=== PATIENT | male | born 1990 | race Caucasian/White ===

== ENCOUNTER 2025-03-02 22:11 | Observation (INO) | payer OTHER, SELFPAY ==
--- NOTE | ~2025-03-02 | CT_ITS ---
Non-contrast CT scan of the Abdomen and Pelvis Clinical indication: Right flank pain Technique: 2.5 mm axial scans were obtained through the abdomen and pelvis without intravenous or or al contrast. Dose reduction technique was used on this scan by utilizing automated exposure control a nd iterative reconstruction technique. The dose-length product (DLP) was 633.20 mGy-cm. Findings: Images through the lung bases reveal no abnormalities. There is no evidence of renal or ureteral calculi. The kidneys and the ureters are nondilated. The liver, spleen, pancreas, gallbladder, and adrenals appear normal. There is no aortic aneurysm. There is no evidence of bowel obstruction. Images through the pelvis were performed. There is no evidence of ascites or lymphadenopathy. Urinary bladder unremarkable. No pelvic mass seen. Impression: No significant abnormality seen. Reviewed, dictated and finalized at [facility]. Impression: No significant abnormality seen.
--- OUTSIDE RECORDS SUMMARY | 2025-03-02 22:14 | XMS_ITS | Continuity of Care Document ---
Author Organization [facility] Address [address] [place] [address] [place] [address] Phone Care Team Providers Care Water System Operator Name Role Phone Abdulaziz Ross MD Unavailable Unavailable Allergies, Adverse Reactions, Alerts Substance Reaction Status Criticality No Known Allergies Active No Inform ation Procedures Procedure Date PREV VISIT, EST, AGE 18-39 PREV VISIT, EST, AGE 18-39 OFFICE/OUTPATIENT VISIT, EST OFFICE/OUTPATIENT VISIT, EST OFFICE/OUTPATIENT VISIT, EST PREV VISIT, EST, AGE 18-39 OFFICE/OUTPATIENT VISIT, EST OFFICE/OUTPATIENT VISIT, EST OFFICE/OUTPATIENT VISIT, EST OFFICE/OUTPATIENT VISIT, EST PREV VISIT, NEW, AGE 18-39 Advance Directives Directive Yes / No Effective Date File Name No Information Encounters Encounter Description Practice Location Reason(s) For Visit Diagnoses Date Provider Providers Copied on Encounter PREV VISIT, EST, AGE 18-39 [facility], [address], [place], [place], [address], [place] tel:[phone] [facility] physical (chief complaint) Encounter for general adult medical examination without abnormal findings 4 Cody Cintron. [address], [place], [place], [address] , [place]. tel:[phone] Referring Provider: Abdulaziz Ross, [address], [place], [place], [address]. tel:[phone] PREV VISIT, EST, AGE 18-39 [facility], [address], [place], [place], [address], [place] tel:[phone] [facility] PHysical (chief complaint) Encntr for general adult medical exam w/o abnormal findings 7 Cody Cintron. [address], [place], [place], [address] , [place]. tel:[phone] Referring Provider: bAdulaziz Ross, [address], [place], [place], [address]. tel:[phone] OFFICE/OUTPA TIENT VISIT, EST [facility], [address], [place], [place], [address], [place] tel:[phone] [facility] DM (chief complaint)A DD (chief complaint) Attention deficitType 1 diabetes mellitus without complications 6 Cody Cintron. [address], [place], [place], [address] , [place]. tel:[phone] Referring Provider: Abdulaziz Ross, [address], [place], [place], [address]. tel:[phone] OFFICE/OUTPA TIENT VISIT, EST [facility], [address], [place], [address], [place] tel:[phone] [facility] ADD (chief complaint) Attention deficit 5 Cody Cintron. [address], [place], [place], [address] , [place]. tel:[phone] Referring Provider: Abdulaziz Ross, [address], [place], [place], [address]. tel:[phone] OFFICE/OUTPA TIENT VISIT, EST [facility], [address], [place], [place], [address], [place] tel:[phone] [facility] ear pain1 (chief complaint)a gitation1 (chief complaint)D M (chief complaint)v itamin d (chief complaint) Type 1 diabetes mellitus without complicationsVitam in D deficiency, unspecifiedOtalgia , left earAttention deficit 5 Cody Cintron. [address], [place], [place], [address] , [place]. tel:[phone] Referring Provider: Abdulaziz Rsos, [address], [place], [place], [address]. tel:[phone] PREV VISIT, EST, AGE 18-39 [facility], [address], [place], [place], [address], [place] [phone] [facility] DM (chief complaint)d epression (chief complaint)P hysical (chief complaint) Routine Medical ExamRoutine Medical Exam 5 Cody Cintron. [address], [place], [place], [address] , [place]. tel:[phone] Referring Provider: [address], [place], [place], [address]. tel:[phone] OFFICE/OUTPA TIENT VISIT, EST [facility], [address], [place], [address], [place] tel:[phone] [facility] DM (chief complaint)d epression (chief complaint) Diabetes Mellitus, Juvenile, ControlledUnspecif ied vitamin d deficiencyDepressi on 4 Cody Cintron. [address], [place], [place], [address] , [place]. [phone] Referring Provider: [address], [place], [place], [address]. tel:[phone] OFFICE/OUTPA TIENT VISIT, EST [facility], [address], [place], [place], [address], [place] tel:[phone] [facility] DM (chief complaint) Diabetes Mellitus Type 2, Uncomplicated 4 Cody Cintron. [address], [place], [place], [address] , [place]. tel:[phone] Referring Provider: [address], [place], [place], [address]. tel:[phone] OFFICE/OUTPA TIENT VISIT, [facility], [address], [place], [place], [address], [place] tel:[phone] [facility] depression (chief complaint) Dietary surveillance and counselingMajor depressive affective disorder, single episode, mild degree Jun-0 3 Cody Cintron. [address], [place], [place], [address] , [place]. tel:[phone] Referring Provider: [address], [place], [place], [address]. tel:[phone] OFFICE/OUTPA TIENT VISIT, [facility], [address], [place], [place], [address], [place] tel:[phone] [facility] depression (chief complaint) Dietary surveillance and counselingMajor depressive affective disorder, single episode, mild degree 3 Cody Cintron. [address], [place], [place], [address] , [place]. tel:[phone] Referring Provider: [address], [place], [place], [address]. tel:[phone] PREV VISIT, NEW, AGE 18-39 [facility], [address], [place], [address], [place] tel:[phone] [facility] Physical (chief complaint) Dietary surveillance and counselingRoutine Medical ExamRoutine Medical Exam 3 Cody Cintron. [address], [place], [place], [address] , [place]. tel:[phone] Referring Provider: [address], [place], [place], [address]. tel:[phone] Family History Family Member Type Diagnosis Age At Onset Mother Problem (finding) Alive and well Father Problem (finding) Alive and well Sister Problem (finding) Alive and well Payers Payer name Insurance type Covered libertarian ID Authoriza tion(s) No Information Social History Type Description Quantity Date Captured Comments Alcohol Use Details No Caffeine Use Details Unknown Tobacco Use Status Never smoked tobacco 2023 Smoking Status Never smoker Sex Male Vital Signs Date / Time: Height Weight BMI Pulse Rate Blood Pressure Temperature Respiratory Rate Body Surface Area Head Circumference BMI percentile Pulse Ox Inhaled Ox 2:26 PM 74.00 in 216.60 lbs 27.8 1 kg/m eter (2) 71 /min 120/78 mm[Hg] 97.2 F 16 /min Chief Complaint And Reason For Visit From encounter dated 10/06/2024 14:25'. physical (chief complaint). Description: Pt needs annual physical Pt has type I DM Pt sees josiah andhe is on insulin pump and his recent A1c was 7.1 per mom Pt is doing ok with insulin pump. Pt denies any polyuria, polydipsia Pt denies any neuropathy .Pt also has history of low thyroid and he has been seeing endo and his thyroid has been ok Pt denies any dysphagia or neck pain. Pt denies any other complaints Plan Of Treatment Date Type Action Status Goal Influenza vaccine. Due on due Goal Td vaccine. Due on 24 due Goal Tdap. Due on due Goal Depression screening. Due on due Goal Tdap. Due on due Goal Td vaccine. Due on 17 due Goal Depression screening. Due on due Goal Tdap. Due on due Goal Td vaccine. Due on 16 due Goal Depression screening. Due on due Goal Td vaccine. Due on 15 due Goal Depression screening. Due on due Goal Tdap. Due on due Goal Depression screening. Due on due Goal Td vaccine. Due on 15 due Goal Tdap. Due on due Referral Ordered: Referral: Ophthalmology. Evaluate and treat. ordered Referral Ordered: Referral: Endocrinology. ordered History Of Present Illness Encounter Date Complaint History Of Harry nt Illness physical Pt needs annual physical Pt has type I DM Pt sees endo and he is on insulin pump and his recent A1c was 7.1 per mom Pt is doing ok with insulin pump. Pt denies any polyuria, polydipsia Pt denies any neuropathy .Pt also has history of low thyroid and he has been seeing endo and his thyroid has been ok Pt denies any dysphagia or neck pain. Pt denies any other complaints PHysical PT needs annual physical. Pt has history of austic disorder and he denies any depression or anxiety Pt used to take ritalin but he has not taken it for a while. Pt states that he feels difficulty with focus without ritalin Pt also has DM. [facility] and he has not seen any endo for 3 months. Pt denies any numbness. Pt states that his BG is around 150s. Pt has not been eating very healthy. Pt takes lantus 15 units and also apidra before meals Pt denies any other ocmplaints ADD Pt has ADD. Pt t akes ritalin 10 mg and doing ok. Pt denies any abd pain or any appetite loss. Pt states that he is in better mood. Pt denies any depression or any suicidal thought DM PT has type I DM . Pt is seeing endo and he is on lanuts and apidra. Pt states that his BG is arond 150s. His A1c is around 8.0 ADD Pt has ADd. Pt h as chronic poor focus, easily distracted, difficlulty with multitasking. Pt feels overwhelmed all the time. Pt is austic and he denies any depression or any suicidal thought Pt denies any crying spells. Pt states that ritalin is helping his above symptoms. Pt feels less irritable. Pt feels about 50% better in terms of his mood. Pt denies any abd pain or any appetite loss vitamin d Pt has low vitam in D. DM Pt has type I Dm . Pt is seeing endo. Pt takes lantus and apidra. His A1c is 6.3. Pt denies any polyuuria, polydipsia. agitation1 Pt is austic. Pt has history of depression and agitation. Pt states that he has anger outbust frequently, especially when he is doing multitasking. Pt also has history of poor focus and poor concentration. pt states that he has difficulty getting anyting done due to distration. Pt denies any crying speels Pt denies any depression or anxiety. Pt denies any suicidal or homicidal thought ear pain1 Pt c/o acute lef t ear pain since last Friday. Pt denies any hearing loss Pt denies any sore throat. Pt denies any headache. Pt has sinus congestion also Pt denies any fever or recent travel Instructions Date Instruction Additional Infor vineet Decrease caloric intake Related to Dietary surveillance counseling Dietary counseling Related to Di etary surveillance counseling Decrease caloric intake Related to Dietary surveillance counseling Dietary counseling Related to Di etary surveillance counseling Dietary counseling Related to Di etary surveillance counseling Decrease caloric intake Related to Dietary surveillance counseling Assessments Type Assessment Date assessment Encounter for rigo l adult medical examination without abnormal findings Mental Status Date Cognitive Assessment Orientation - [place] ed to time, place, person, situation.
--- OUTSIDE RECORDS SUMMARY | 2025-03-02 22:14 | XMS_ITS | Encounter Summary ---
Author Organization [facility] Address [address] [facility] [place] [address] Care Team Providers Care Oxygen Therapist Name Role Phone Abdulaziz Ross MD Primary Care Provider [phone] Encounter Details Date Type Department Care Team (Late st Contact Info) Description 10/04/2024 Telephone [facility] - Endocrinology [facility] [address] Santino Garsia MD [address] [place] [address] Social History Tobacco Use Types Packs/Day Years Used Date Smoking Tobacco: Never Smokeless Tobacco: Never Alcohol Use Standard Drinks/Week Comments Yes 3 (1 standard drink = 0.6 oz pur e alcohol) Sex and Gender Information Value Date Recorded Sex Assigned at Not on file Gender Identity Not on file Sexual Orientation Not on file documented as of this encounter Miscellaneous Notes * Telephone Encounter - Zakia Donahue - 10/04/2024 1:03 PM CST Current Provider: Dr. Santino Garsia Reason for Call: Carl Caba's mothere would like to schedule an appt w/ Dr. Garsia. Please call Her at [phone] Janna Mendenhall. Patient Call Back Number: [phone] WICH MAKER documented in this encounter Plan of Treatment Upcoming Encounters Date Type Department Care Team (Late st Contact Info) Description 05/17/2025 10:00 AM CDT Office Visit [facility] - Endocrinology [address] [facility] [place] [address] Santino Garsia MD [address] [place] [address] documented as of this encounter Visit Diagnoses Not on filedocumented in this encounter Care Teams Oxygen Therapist Relationship Specialty Start Date End Date Abdulaziz Ross MD [address] [facility] [address] [place] [address] PCP - General 11/09/14 documented as of this encounter
--- OUTSIDE RECORDS SUMMARY | 2025-03-02 22:14 | XMS_ITS | Encounter Summary ---
Author Organization [facility] Address [address] [place] [address] Care Team Providers Care Consultant Intern Name Role Phone Unavailable Primary Care Provider Unavailabl e Encounter Details Date Type Department Care Team (Late st Contact Info) Description 03/01/2025 External Device Data [place] ABSTRACTION Provider, Abstract NO ADDRESS ON FILE Social History Tobacco Use Types Packs/Day Years Used Date Smoking Tobacco: Never Assessed Sex and Gender Information Value Date Recorded Sex Assigned at Not on file Legal Sex Male 12:32 PM CDT Gender Identity Not on file Sexual Orientation Not on file documented as of this encounter Plan of Treatment Not on file documented as of this encounter Visit Diagnoses Not on filedocumented in this encounter
--- OUTSIDE RECORDS SUMMARY | 2025-03-02 22:14 | XMS_ITS | Encounter Summary ---
Author Organization [facility] Address [facility] [facility] [place] [address] Care Team Providers Care Image Archivist Name Role Phone Abdulaziz Ross MD Primary Care Provider [phone] Encounter Details Date Type Department Care Team (Late Contact Info) Description 02/20/2025 Orders Only [facility] - Pulmonology [address] [place] [phone] Anita Finn MD [address] [place] [address] Type 1 diabetes mellitus without complications Social History Tobacco Use Types Packs/Day Years Used Date Smoking Tobacco: Never Smokeless Tobacco: Never Alcohol Use Standard Drinks/Week Comments Yes 3 (1 standard drink = 0.6 oz pur e alcohol) Sex and Gender Information Value Date Recorded Sex Assigned at Not on file Gender Identity Not on file Sexual Orientation Not on file documented as of this encounter Plan of Treatment Upcoming Encounters Date Type Department Care Team (Late Contact Info) Description 05/17/2025 10:00 AM CDT Office Visit [facility] - Endocrinology [address] [place] [phone] Santino Garsia MD [address] [place] [phone] documented as of this encounter Visit Diagnoses Diagnosis Type 1 diabetes mellitus without complications (HCC) Type I (juvenile type) diabetes mellitus without mention of complication, not stated as uncontrolled documented in this encounter Care Teams Image Archivist Relationship Specialty Start Date End Date Abdulaziz Ross MD [address] [facility] [address] [place] [address] PCP - General 11/09/14 documented as of this encounter
--- OUTSIDE RECORDS SUMMARY | 2025-03-02 22:14 | XMS_ITS | Encounter Summary ---
Author Organization [facility] Address [address] [facility] [address] Care Team Providers Care Lining Maker Hand Name Role Phone Abdulaziz Ross MD Primary Care Provider [phone] Encounter Details Date Type Department Care Team (Late st Contact Info) Description 02/09/2025 Telephone [facility] - Endocrinology [address] [facility] [facility] [place] [phone] Anita Finn MD [address] [place] [address] Social History Tobacco Use Types Packs/Day Years [...] * Telephone Encounter - Zakia Donahue - 02/09/2025 3:29 PM CDT Current Provider: Reason for Call: [facility] in [facility] called re: Carl Caba's insulin lispro (HumaLOG) 100 UNIT/ML vial refill. It is just written today under Dr. Jack Mckeon and he is not in their DataBase for Medicaid. Could this script be written under previous prescriber Anita Andrews. Please give the [facility] call at [phone] Patient Call Back Number: [phone] documented in this encounter Plan of Treatment Upcoming Encounters Date Type Department Care Team (Late st Contact Info) Description 05/17/2025 10:00 AM CDT Office Visit [facility] - Endocrinology [address] [facility] [place] [address] Santino Garsia MD [address] [place] [address] documented as of this encounter Visit Diagnoses Not on filedocumented in this encounter Care Teams Lining Maker Hand Relationship Specialty Start Date End Date Abdulaziz Ross MD [address] [facility] [address] [facility] 20 [place] [address] PCP - General 11/09/14 documented as of this encounter
--- OUTSIDE RECORDS SUMMARY | 2025-03-02 22:14 | XMS_ITS | Encounter Summary ---
Author Organization [facility] Address [facility] [facility] [place] [address] Care Team Providers Care Chief Client Officer Name Role Phone Abdulaziz Ross MD Primary Care Provider [phone] Reason for Visit * Reason Onset Date Comments MEDICATION REFILL 06/24/2022 Encounter Details Date Type Department Care Team (Late Contact Info) Description 06/24/2022 Refill [facility] Endocrinology, Diabetes and Metabolism [address] [place] [phone] Agapito Hicks MD [address] [place] [address] OF ENDOCRINOLOGY [place], [place] [phone] MEDICATION REFILL Social History Tobacco Use Types Packs/Day Years [...] Office Visit [facility] - Endocrinology [address] [place] [phone] Santino Garsia MD [address] [facility] [address] [place] [phone] documented as of this encounter Visit Diagnoses Diagnosis Type 1 diabetes mellitus without complications (HCC) Type I (juvenile type) diabetes mellitus without mention of complication, not stated as uncontrolled documented in this encounter Care Teams Chief Client Officer Relationship Specialty Start Date End Date Abdulaziz Ross MD [address] [facility] [address] [place] [phone] PCP - General 11/09/14 documented as of this encounter
--- OUTSIDE RECORDS SUMMARY | 2025-03-02 22:14 | XMS_ITS | Encounter Summary ---
Author Organization [facility] Address [facility] [place] [address] Care Team Providers Care Service Restorer Emergency Name Role Phone Abdulaziz Ross MD Primary Care Provider [phone] Reason for Visit * Reason Onset Date Comments MEDICATION REFILL 09/17/2019 Encounter Details Date Type Department Care Team (Late st Contact Info) Description 09/17/2019 Refill [facility] Endocrinology, Diabetes and Metabolism [address] [place] [address] Robbi Crockett MD [address] [place] [address] MEDICATION REFILL Social History Tobacco Use Types Packs/Day Years Used Date Smoking Tobacco: Never Smokeless Tobacco: Never Alcohol Use Standard Drinks/Week Comments No 0 (1 standard drink = 0.6 oz pur e alcohol) Sex and Gender Information Value Date Recorded Sex Assigned at Not on file Gender Identity Not on file Sexual Orientation Not on file documented as of this encounter Miscellaneous Notes * Telephone Encounter - James Lemons - 09/17/2019 1:41 PM CDT Refill Request Carl Caba GAMAL:08/12/19 NOV: 01/06/20 Allergies: No Known Allergies Pended Medication Order: Requested Prescriptions Pending Prescriptions Disp Refills ??? Insulin Pen Needle 32G X 4 MM MISC 100 Each 3 Si Each by Injection route once daily With basaglar documented in this encounter Plan of Treatment Upcoming Encounters Date Type Department Care Team (Late st Contact Info) Description 05/17/2025 10:00 AM CDT Office Visit [facility] - Endocrinology [address] [facility] [place] [address] Santino Garsia MD [address] [facility] [address] [place] [address] documented as of this encounter Visit Diagnoses Not on filedocumented in this encounter Care Teams Service Restorer Emergency Relationship Specialty Start Date End Date Abdulaziz Ross MD [address] [facility] [address] [place] [address] PCP - General 11/09/14 documented as of this encounter
--- OUTSIDE RECORDS SUMMARY | 2025-03-02 22:14 | XMS_ITS | Encounter Summary ---
Author Organization [facility] Address [facility] [facility] [place] [address] Care Team Providers Care Talent Associate Name Role Phone Abdulaziz Ross MD Primary Care Provider [phone] Reason for Visit * Reason Onset Date Comments MEDICATION REFILL 07/03/2020 Encounter Details Date Type Department Care Team (Late Contact Info) Description 07/03/2020 Refill [facility] End[facility]inology, Diabetes and Metabolism [address] [place] [address] Robbi Crockett MD [facility] [place] [address] MEDICATION REFILL Social History Tobacco Use Types [...] Office Visit [facility] - Endocrinology [address] [facility] [place] [phone] Santino Garsia MD [address] [place] [phone] documented as of this encounter Visit Diagnoses Not on filedocumented in this encounter Care Teams Talent Associate Relationship Specialty Start Date End Date Abdulaziz Ross MD [address] [facility] [address] [facility] 20 [place] [address] PCP - General 11/09/14 documented as of this encounter
--- OUTSIDE RECORDS SUMMARY | 2025-03-02 22:14 | XMS_ITS | Clinical Summary ---
Author Organization [facility] Address [address] [place] [address] Care Team Providers Care Crop And Soil Scientist Name Role Phone Abdulaziz Ross MD Primary Care Provider [phone] [facility],non-owned Affiliates and Associated Physician Practices is amultiple site organization consisting of ambulatory clinics and hospital sitesin [place], [place], [place] and [place]. This disclosure is being madepursuant to the Care Everywhere program and may not contain all information available regarding this patient. Last updated 08/14/18.71lbs [facility] Allergies No known active allergies Medications * Be aware that medications may not be up to date on this document. Alwaysverify current medications with the patient. Medication Sig Dispensed Refills Start Date End Date Status insulin syringe-needle (BD ULTRAFINE II) 31G X 5/16 1 ML syringe 1 Syringe by Does not apply route 4 times daily. 200 Each 11 09/01/2019 Active GNP ALCOHOL SWABS 70 %Indications:Type 1 diabetes mellitus without complications (HCC) Apply 1 Each to affected area as directed TYPE 1 DM, E10.65 IDDM 200 Each 11 03/09/2020 Active Blood Glucose Monitoring Suppl (ONE TOUCH ULTRA 2) w/Device KITIndications:Typ e 1 diabetes mellitus without complications (HCC) Use 1 kit as directed TYPE 1 DM, E10.65 IDDM 1 kit 03/15/2020 Active Additional Information Patient not taking.Reported on 11/25/2023 glucagon (GLUCAGON EMERGENCY) injection Inject 1 mg subcutaneously as needed 1 kit 11 05/02/2020 Active Insulin Pen Needle 32G X 4 MM MISC 1 Each by Injection route 6 times daily while awake With basaglar 200 Each 11 05/02/2020 Active Continuous Blood Gluc Financial Retirement Plan Specialist (DEXCOM G6 PHARMACIST HELPER) HARVINDER USE UTD 05/19/2020 Active Continuous Glucose Transmitter (Dexcom G6 Transmitter) MISCIndications:Ty pe 1 diabetes mellitus without complications (HCC) Use 1 Each Every 90 days 1 Each 3 04/12/2024 Active Continuous Glucose Sensor (Dexcom G6 Sensor) MISCIndications:Ty pe 1 diabetes mellitus without complications (HCC) Change every 10 days as directed 9 Each 2 11/19/2024 Active insulin lispro (HumaLOG) 100 UNIT/ML vialIndications:Ty pe 1 diabetes mellitus without complications (HCC) ICR 8, ISF 30, max dose 100 units for use in insulin pump 100 mL 11 02/20/2025 Active insulin lispro (HumaLOG) 100 UNIT/ML vialIndications:Ty pe 1 diabetes mellitus without complications (HCC) ICR 8, ISF 30, max dose 80 units for use in insulin pump 80 mL 11 10/26/2024 5 Discontinu ed(Reorder ) insulin lispro (HumaLOG) 100 UNIT/ML vialIndications:Ty pe 1 diabetes mellitus without complications (HCC) ICR 8, ISF 30, max dose 100 units for use in insulin pump 100 mL 11 02/09/2025 5 Discontinu ed(Reorder ) Active Problems Problem Noted Date Diagnosed Date Insulin pump in place 08/08/2020 Vitamin D deficiency 01/24/2016 Autistic disorder 12/21/2014 Type 1 diabetes mellitus without complications 0 12/21/2014 Encounters Date Type Department Care Team Description 02/20/2025 Orders Only [facility] - Pulmonology [address] [place] [address] [phone] Anita Finn MD Type 1 diabetes mellitus without complications 02/09/2025 Telephone [facility] - Endocrinology [address] [place] [address] [phone] Anita Finn MD 01/25/2025 11:[address] Office Visit [facility] - Endocrinology [address] [place] [address] [phone] Santino Garsia MD Type 1 diabetes mellitus without complications (Primary Dx) 01/25/2025 Travel from Last 3 Months Family History Medical History Relation Name Comments None Known Brother None Known Father Thyroid Disease Maternal Aunt None Known Maternal Grandfather None Known Maternal Grandmother Diabetes Maternal Uncle None Known Mother None Known Other None Known Paternal Grandfather None Known Paternal Grandmother None Known Sister Alcohol abuse Neg Hx Asthma Neg Hx Dementia Neg Hx Depression Neg Hx Drug Abuse Neg Hx Glaucoma Neg Hx Gout Neg Hx Leukemia Neg Hx Migraine Neg Hx Multiple Sclerosis Neg Hx Other Neg Hx Relation Name Status Comments Brother Father Alive Maternal Aunt Maternal Grandfather Maternal Grandmother Maternal Uncle Mother Alive Other Paternal Grandfather Paternal Grandmother Sister Social History Tobacco Use Types Packs/Day Years Used Date Smoking Tobacco: Never Smokeless Tobacco: Never Tobacco Cessation:Counseling Given: Not Answered Alcohol Use Standard Drinks/Week Comments Yes 3 (1 standard drink = 0.6 oz pur e alcohol) Sex and Gender Information Value Date Recorded Sex Assigned at Not on file Gender Identity Not on file Sexual Orientation Not on file Last Filed Vital Signs Vital Sign Reading Time Taken Comments Blood Pressure 111/79 01/25/2025 10:[address] Pulse 81 01/25/2025 10:[address] Temperature 36.6 C (97.8 F) 06/01/2024 10:26 AM CDT Respiratory Rate 18 11/25/2023 10:[address]DU[address] Oxygen Saturation 95% 01/25/2025 10:[address] Inhaled Oxygen Concentration - - Weight 98.7 kg (217 lb 9.6 oz) 01/25/2025 10:[address] Height 188 cm (6' 2 ) 01/25/2025 10:[address]DU[address] Body Mass Index 27.94 01/25/2025 10:[address]DU[address] Plan of Treatment Upcoming Encounters Date Type Department Care Team (Late st Contact Info) Description 05/17/2025 10:00 AM CDT Office Visit [facility] - Endocrinology [address] [facility] [place] [phone] Santino Garsia MD [address] [place] [phone] Health Maintenance Due Date Last Done Comments HIV SCREENING 2003 HEPATITIS C SCREENING 08/27/2006 DTAP/TDAP/TD VACCINES (1 - Tdap) 2007 HEPATITIS B VACCINE (1 of 3 - 19+ 3-dose series) 2007 PNEUMOCOCCAL VACCINE (1 of 2 - PCV) 2007 DIABETES RETINOPATHY SCREENING 02/23/2018 COVID-19 VACCINE (1 - season) 2024 DEPRESSION SCREENING 11/24/2024 DIABETES - URINE PROTEIN SCREENING 11/24/2024 06/30/2024, 06/11/2022, 05/10/2021, Additional history exists DIABETES-SERUM CREATININE 04/01/20252023, 05/09/2021, 06/12/2020, Additional history exists DIABETES-HGB A1C 04/27/2025 01/25/2025, 01/2024, 06/01/2024, Additional history exists DIABETES-FOOT EXAM WITH MONOFILAMENT 06/01/2025 06/01/2024, 08/12/2019, 04/23/2018, Additional history exists INFLUENZA VACCINE (Season Ended) 2025 ZOSTER VACCINE (1 of 2) 2038 HIB VACCINE Aged Out No longer eligi ble based on patient's age to complete this topic HPV VACCINE Aged Out No longer eligi ble based on patient's age to complete this topic MENINGOCOCCAL (Group B) VACCINE SHARED DECISION-MAKING Aged Out No longer eligible based on patient's age to complete this topic MENINGOCOCCAL GROUPS A/C/Y/W VACCINE Aged Out No longer eligible based on patient's age to complete this topic Procedures Procedure Name Priority Date/Time Associated Diagnosis Comments HEMOGLOBIN A1C - POINT OF CARE (AMB) [facility] Routine 01/25/2025 11:[address] Type 1 diabetes mellitus without complications MICROALB/CREAT RATIO URINE RANDOM PANEL 06/30/2024 1:13 PM CDT COMPREHENSIVE METABOLIC PANEL 04/01/2024 9:34 AM CDT from Last 3 Months or Most Recently Relevant to Health Maintenance Results * HEMOGLOBIN A1C - POINT OF CARE (AMB) [facility] (01/25/2025 11:[address]DUCTOR) Hemoglobin A1c POCT 8.0 % [address] BLOOD SPECIMEN / Unknown 01/25/2025 11:[address]DU[address] Santino Garsia MD LAB - POINT OF CARE ORDERABLES Performing Organization Address [facility] Co de Phone Number [place] [phone] [facility] [place] [address], [facility] [phone] * MICROALB/CREAT RATIO URINE RANDOM PANEL (06/30/2024 1:13 PM CDT) Creatinine Urine 77 20 - 320 mg/dL [facility] Microalbumin Urine 0.3 mg/dL [facility] Comment: Reference Range Not established Microalbumin/Creat inine Ratio 4 <30 mg/g creat [facility] Comment: The ADA defines abnormalities in albumin excretion as follows: Albuminuria Category Result (mg/g creatinine) Normal to Mildly increased <30 Moderately increased 30-299 Severely increased > OR = 300 The ADA recommends that at least two of three specimens collected within a 3-6 month period be abnormal before considering a patient to be within a diagnostic category. Test Performed at: [facility] [address] FELICITAS MUNOZ MD 06/30/2024 1:13 PM CDT 06/30/2024 1:16 PM CDT Santino Garsia MD LAB - URINE CHEMISTR Y ORDERABLES Performing Organization Address City/[facility]/ZIP Co de Phone Number [facility] [address] [place] [address] * (ABNORMAL) COMPREHENSIVE METABOLIC PANEL (04/01/2024 9:34 AM CDT) Glucose 233(H) 65 - 139 mg/dL [facility] Comment: Non-fasting reference interval BUN 19 7 - 25 mg/dL [facility] Creatinine 0.93 0.60 - 1.26 mg/dL [facility] eGFR by Cystatin C 110 > OR = 60 mL/min/1. 73m2 [facility] BUN/Creatinine Ratio SEE NOTE: 6 - (calc) [facility] Comment: Not Reported: BUN and Creatinine are within reference range. Sodium 138 135 - 146 mmol/L [facility] Potassium 4.4 3.5 - 5.3 mmol/L [facility] Chloride 103 98 - 110 mmol/L [facility] CO2 27 20 - 32 mmol/L [facility] Calcium 9.0 8.6 - 10.3 mg/dL [facility] Protein Total 6.3 6.1 - 8.1 g/dL [facility] Albumin 4.1 3.6 - 5.1 g/dL [facility] Globulin Total 2.2 1.9 - 3.7 g/dL (calc) [facility] Albumin/Globulin Ratio 1.9 1.0 - 2.5 (calc) [facility] Bilirubin Total 0.8 0.2 - 1.2 mg/dL [facility] Alkaline Phosphatase 100 36 - 130 U/L [facility] AST 15 10 - 40 U/L [facility] ALT 13 9 - 46 U/L [facility] Comment: REPORT COMMENT: FASTING:NO Test Performed at: [facility] [address] FELICITAS MUNOZ MD 04/01/2024 9:34 AM CDT 04/01/2024 9:35 AM CDT Santino Garsia MD LAB - CHEMISTRY ALANA [facility]OR[facility] Organization Address City/State/ZIP Co de Phone Number [address] [address] from Last 3 Months or Most Recently Relevant to Health Maintenance Care Teams Crop And Soil Scientist Relationship Specialty Start Date End Date Abdulaziz Ross MD [address] [facility] [address] [place] [address] PCP - General 11/09/14
--- OUTSIDE RECORDS SUMMARY | 2025-03-02 22:14 | XMS_ITS | Clinical Summary ---
Author Organization [facility] Address [address] [place] [address] Care Team Providers Care Cooking Teacher Name Role Phone Unavailable Primary Care Provider Unavailabl e Medications Blood-Glucose Transmitter (Dexcom G6 Transmitter) Device Use 1 every 90 days 1 Each 3 12/26/2024 1:17 PM TRAIN ELECTRONIC TECHNICIAN 4 Active insulin lispro (HumaLOG,ADMELOG ) 100 unit/mL vial Use as directed with insulin pump. Max dose of 80 units. ICR 8 and ISF 30. 80 mL 11 02/10/2025 4:39 PM CDT 4 Active Blood-Glucose Sensor (Dexcom G6 Sensor) Device Change every 10 days as directed 9 Each 2 02/01/2025 11:33 AM CDT 4 Active insulin lispro (HumaLOG,ADMELOG ) 100 unit/mL vial ICR 8, ISF 30, max dose 100 units for use in insulin pump 100 mL 11 5 Active insulin lispro (HumaLOG,ADMELOG ) 100 unit/mL vial ICR 8, ISF 30, Max dose 100 units for use in insulin pump 100 mL 11 5 02/21/20 25 Discontinu ed(Other) Encounters Date Type Department Care Team Description 03/01/2025 External Device Data [facility] ABSTRACTION Provider, Abstract 01/29/2025 External Device Data [facility] ABSTRACTION Provider, Abstract 01/28/2025 External Device Data [facility] AB[facility]CTION Provider, Abstract 01/26/2025 External Device Data [facility] AB[facility]CTION Provider, Abstract from Last 3 Months Social History Tobacco Use Types Packs/Day Years Used Date Smoking Tobacco: Never Assessed Sex and Gender Information Value Date Recorded Sex Assigned at Not on file Legal Sex Male 12:32 PM CDT Gender Identity Not on file Sexual Orientation Not on file Plan of Treatment Health Maintenance Due Date Last Done Comments DTAP/TDAP/TD VACCINES (1 - Tdap) 2007 HEPATITIS B VACCINES (1 of 3 - 19+ 3-dose series) 2007 INFLUENZA VACCINE (#1) 2024 HPV VACCINES Aged Out No longer eligi ble based on patient's age to complete this topic Insurance [employer] Commercial
[2025-03-02 22:21] VITALS: BP 122/88; PULSE 116; RESP 20; TEMP 36.5; O2SAT 98
[2025-03-02 22:29] LABS: Glucose Point of Care 468 mg/dl (65-105)
[2025-03-03] VITALS (11 sets, daily range): BP systolic 91–120; BP diastolic 55–79; PULSE 93–115; RESP 14–21; TEMP 36.6–37.2; O2SAT 94–98; BMI 27.8
[2025-03-03 01:24] LABS: Basophils Absolute Auto 0.1 K/mm3 (0.0-0.1); Basophils Percent Auto 0.3 % (0.2-1.2); Hematocrit 46.2 % (42.0-52.0); Hemoglobin 15.3 g/dL (14.0-18.0); Immature Granulocyte Absolute 0.17 K/mm3 (0.00-0.031); Immature Granulocyte Percent A 0.7 % (0-0.5); Lymphocytes Absolute Auto 1.78 K/mm3 (0.9-3.2); Lymphocytes Percent Auto 7.5 % (18.3-44.2); Mean Corpuscular HGB Conc 33.1 g/dl (32-36); Mean Corpuscular Hemoglobin 29.5 pg (26-34); Mean Platelet Volume 9.8 fl (7.4-10.4); Monocytes Absolute Auto 1.6 K/mm3 (0.1-0.6); Monocytes Percent Auto 6.6 % (2.6-8.5); Neutrophils Absolute Auto 20.1 K/mm3 (1.3-6.7); Neutrophils Percent Auto 84.9 % (45.5-73.1); Platelet Count Result 288 k/mm3 (150-375); Red Blood Count 5.19 M/mm3 (4.6-6.20); Red Cell Distribution Width 12.8 % (11.5-14.5); White Blood Count 23.7 K/mm3 (4.5-10.0)
[2025-03-03 01:25] LABS: Glucose Point of Care 323 mg/dl (65-105)
[2025-03-03] MEDS: ONDANSETRON INJ 4 MG/2 ML VIAL (01:26)
[2025-03-03] MEDS: MORPHINE SULFATE (*CRX) 4 MG/ML INJ IV PUSH (01:33)
[2025-03-03] MEDS: SODIUM CHLORIDE 0.9% 999 ML IV CONT (01:33)
--- OUTSIDE RECORDS SUMMARY | 2025-03-03 01:35 | XMS_ITS | Continuity of Care Document ---
Author Organization [facility] Address [address] [place] [address] [place] [address] Phone Care Team Providers Care Ring Maker Name Role Phone Abdulaziz Ross MD Unavailable [...] on Encounter PREV VISIT, EST, AGE 18-39 [facility], [address], [place], [place], [address], [place] tel:[phone] [facility] physical (chief complaint) Encounter for general adult medical examination without abnormal findings 4 Cody Cintron. [address], [place], [place], [address] , [place]. tel:[phone] Referring Provider: Abdulaziz Ross, [address], [place], [place], [address]. tel:[phone] PREV VISIT, EST, AGE 18-39 [facility] [place], [address], [place], [place], [address], [place] tel:[phone] [facility] [place] PHysical (chief complaint) Encntr for general adult medical exam w/o abnormal findings 7 Cody Cintron. [address], [place], [place], [address] , [place]. tel:[phone] Referring Provider: Abdulaziz Ross, [address], [place], [place], [address]. tel:[phone] OFFICE/OUTPA TIENT VISIT, EST [facility] [place], [address], [place], [place], [address], [place] tel:[phone] [facility] [place] DM (chief complaint)A DD (chief complaint) Attention deficitType 1 diabetes mellitus without complications 6 Cody Cintron. [address], [place], [place], [address] , [place]. tel:[phone] Referring Provider: Abdulaziz Ross, [address], [place], [place], [address]. tel:[phone] OFFICE/OUTPA TIENT VISIT, EST [facility] [place], [address], [place], [place], [address], [place] tel:[phone] [facility] [place] ADD (chief complaint) Attention deficit 5 Cody Cintron. [address], [place], [place], [address] , [place]. tel:[phone] Referring Provider: Abdulaziz Ross, [address], [place], [place], [address]. tel:[phone] OFFICE/OUTPA TIENT VISIT, EST [facility] [place], [address], [place], [place], [address], [place] tel:[phone] [facility] [place] ear pain1 (chief complaint)a gitation1 (chief complaint)D M (chief complaint)v itamin d (chief complaint) Type 1 diabetes mellitus without complicationsVitam in D deficiency, unspecifiedOtalgia , left earAttention deficit 5 Cody Cintron. [address], [place], [place], [address] , [place]. tel:[phone] Referring Provider: Abdulaziz Ross, [address], [place], [place], [address]. tel:[phone] PREV VISIT, EST, AGE 18-39 [facility] [place], [address], [place], [place], [address], [place] [phone] [facility] DM (chief complaint)d epression (chief complaint)P hysical (chief complaint) Routine Medical ExamRoutine Medical Exam 5 Cody Cintron. [address], [place], [place], [address] , [place]. [phone] Referring Provider: Cruz [address], [place], [place], [address]. tel:[phone] OFFICE/OUTPA TIENT VISIT, EST [facility] [place], [address], [place], [place], [address], [place] tel:[phone] [facility] DM (chief complaint)d epression (chief complaint) Diabetes Mellitus, Juvenile, ControlledUnspecif ied vitamin d deficiencyDepressi on 4 Cody Cintron. [address], [place], [place], [address] , [place]. [phone] Referring Provider: Cruz [address], [place], [place], [address]. tel:[phone] OFFICE/OUTPA TIENT VISIT, EST [facility] [place], [address], [place], [place], [address], [place] tel:[phone] [facility] DM (chief complaint) Diabetes Mellitus Type 2, Uncomplicated 4 Cody Cintron. [address], [place], [place], [address] , [place]. tel:[phone] Referring Provider: [address], [place], [place], [address]. tel:[phone] OFFICE/OUTPA TIENT VISIT, [facility], [address], [place], [place], [address], [place] tel:[phone] [facility] [place] depression (chief complaint) Dietary surveillance and counselingMajor depressive affective disorder, single episode, mild degree Jun-0 3 Cody Cintron. [address], [place], [place], [address] , [place]. tel:[phone] Referring Provider: Cruz [address], [place], [place], [address]. tel:[phone] OFFICE/OUTPA TIENT VISIT, [facility], [address], [place], [place], [address], [place] tel:[phone] [facility] [place] depression (chief complaint) Dietary surveillance and counselingMajor depressive affective disorder, single episode, mild degree 3 Cody Cintron. [address], [place], [place], [address] , [place]. tel:[phone] Referring Provider: Cruz [address], [place], [place], [address]. tel:[phone] PREV VISIT, NEW, AGE 18-39 [facility] [place], [address], [place], [place], [address], [place] tel:[phone] [facility] [place] Physical (chief complaint) Dietary surveillance and counselingRoutine Medical ExamRoutine Medical Exam 3 Cody Cintron. [address], [place], [place], [address] , [place]. tel:[phone] Referring Provider: [address], [place], [place], [address]. tel:[phone] Family History Family Member Type Diagnosis Age At Onset Mother Problem (finding) Alive and well Father Problem (finding) Alive and well Sister Problem (finding) Alive and well Payers Payer name Insurance type Covered alliance party ID Authoriza tion(s) No Information Social History [...] before meals Pt denies any other ocmplaints DM PT has type I DM . Pt is seeing endo and he is on lanuts and apidra. Pt states that his BG is arond 150s. His A1c is around 8.0 ADD Pt has ADD. Pt t akes ritalin 10 mg and doing ok. Pt denies any abd pain or any appetite loss. Pt states that he is in better mood. Pt denies any depression or any suicidal thought ADD Pt has ADd. Pt h as [...] any abd pain or any appetite loss ear pain1 Pt c/o acute lef t ear pain since last Friday. Pt denies any hearing loss Pt denies any sore throat. Pt denies any headache. Pt has sinus congestion also Pt denies any fever or recent travel agitation1 Pt is austic. Pt has history [...] Pt denies any suicidal or homicidal thought DM Pt has type I Dm . Pt is seeing endo. Pt takes lantus and apidra. His A1c is 6.3. Pt denies any polyuuria, polydipsia. vitamin d Pt has low vitam in D. Instructions Date Instruction Additional Infor vineet Dietary counseling Related to Di etary surveillance [...] Mental Status Date Cognitive Assessment Orientation - [place] ed to time, place, person, situation.
--- OUTSIDE RECORDS SUMMARY | 2025-03-03 01:35 | XMS_ITS | Encounter Summary ---
Author Organization [facility] Address [address] [place] [address] Care Team Providers Care Pesticide Applicator Name Role Phone Abdulaziz Ross MD Primary Care Provider [phone] Encounter Details Date Type Department Care Team (Late st Contact Info) Description 10/04/2024 Telephone [facility] - Endocrinology [facility] [facility] [place] [address] Santino Garsia MD [address] [place] [address] Social History Tobacco Use Types [...] w/ Dr. Garsia. Please call Her at [phone] Janna Mendenhall. Patient Call Back Number: [phone] R TREATMENT PLANT SUPERVISOR documented in this encounter Plan of Treatment Upcoming Encounters Date Type Department Care Team (Late st Contact Info) Description 05/17/2025 10:00 AM CDT Office Visit [facility] - Endocrinology [address] [facility] [place] [address] Santino Garsia MD [address] [place] [address] documented as of this encounter Visit Diagnoses Not on filedocumented in this encounter Care Teams Pesticide Applicator Relationship Specialty Start Date End Date Abdulaziz Ross MD [address] [facility] [address] [place] [address] PCP - General 11/09/14 documented as of this encounter
--- OUTSIDE RECORDS SUMMARY | 2025-03-03 01:35 | XMS_ITS | Clinical Summary ---
Author Organization [facility] Address [address] [place] [address] Care Team Providers Care Poker Machine Attendant Name Role Phone Unavailable Primary Care Provider Unavailabl e Medications Blood-Glucose Transmitter (Dexcom G6 Transmitter) Device Use 1 every 90 days 1 Each 3 12/26/2024 1:17 PM MERCHANDISING DIRECTOR 4 Active insulin lispro (HumaLOG,ADMELOG ) 100 [...]
--- OUTSIDE RECORDS SUMMARY | 2025-03-03 01:35 | XMS_ITS | Encounter Summary ---
Author Organization [facility] Address [facility] [place] [address] Care Team Providers Care Research Associate Policy Name Role Phone Abdulaziz Ross MD Primary Care Provider [phone] Reason for Visit * Reason Onset Date Comments MEDICATION REFILL 09/17/2019 Encounter Details Date Type Department Care Team (Late st Contact Info) Description 09/17/2019 Refill [facility] Met[facility] [address] [place] [address] Robbi Crockett MD [address] [place] [address] MEDICATION REFILL Social History Tobacco Use Types [...] Visit [facility] - Endocrinology [address] [facility] [place] [address] Santino Garsia MD [address] [place] [address] documented as of this encounter Visit Diagnoses Not on filedocumented in this encounter Care Teams Research Associate Policy Relationship Specialty Start Date End Date Abdulaziz Ross MD [address] [facility] [address] [place] [address] PCP - General 11/09/14 documented as of this encounter
--- OUTSIDE RECORDS SUMMARY | 2025-03-03 01:35 | XMS_ITS | Encounter Summary ---
Author Organization [facility] Address [facility]3 [facility] [place] [address] Care Team Providers Care Plate Colorer Name Role Phone Abdulaziz Ross MD Primary Care Provider [phone] Reason for Visit * Reason Onset Date Comments MEDICATION REFILL 07/03/2020 Encounter Details Date Type Department Care Team (Late Contact Info) Description 07/03/2020 Refill [facility], Diabetes and Metabolism [address] [place] [address] Robbi Crockett MD [facility] [place] [address] MEDICATION REFILL Social History Tobacco Use Types [...] Visit [facility] [address] [facility] [place] [phone] Santino Garsia MD [address] [facility] [address] [place] [phone] documented as of this encounter Visit Diagnoses Not on filedocumented in this encounter Care Teams Plate Colorer Relationship Specialty Start Date End Date Abdulaziz Ross MD [address] [facility] [address] [facility] 20 [place] [address] PCP - General 11/09/14 documented as of this encounter
--- OUTSIDE RECORDS SUMMARY | 2025-03-03 01:35 | XMS_ITS | Encounter Summary ---
Author Organization [facility] Address [address] [facility] [place] [address] Care Team Providers Care Insole Rounder Name Role Phone Abdulaziz Ross MD Primary Care Provider [phone] Encounter Details Date Type Department Care Team (Late st Contact Info) Description 02/09/2025 Telephone [facility] [address] [facility], [facility] [place] [phone] Anita Finn MD [address] [place] [address] Social History Tobacco Use Types Packs/Day Years [...] PM CDT Current Provider: Reason for Call: [facility] in [facility] called re: Carl Caba's insulin lispro (HumaLOG) 100 UNIT/ML vial refill. It is just written today under Dr. Jack Mcekon and he is not in their DataBase for Medicaid. Could this script be written under previous prescriber Anita Andrews. Please give the [facility] call at [phone] Patient Call Back Number: [phone] documented in this encounter Plan of Treatment Upcoming Encounters Date Type Department Care Team (Late st Contact Info) Description 05/17/2025 10:00 AM CDT Office Visit [facility] - Endocrinology [address] [facility] [place] [address] Santino Garsia MD [address] [facility] [address] [place] [address] documented as of this encounter Visit Diagnoses Not on filedocumented in this encounter Care Teams Insole Rounder Relationship Specialty Start Date End Date Abdulaziz Ross MD [address] [facility] [address] [facility] 20 [place] [phone] PCP - General 11/09/14 documented as of this encounter
--- OUTSIDE RECORDS SUMMARY | 2025-03-03 01:35 | XMS_ITS | Encounter Summary ---
Author Organization [facility] Address [facility]3 [facility] [place] [address] Care Team Providers Care Purchasing Analyst Name Role Phone Abdulazzi Ross MD Primary Care Provider [phone] Reason for Visit * Reason Onset Date Comments MEDICATION REFILL 06/24/2022 Encounter Details Date Type Department Care Team (Late Contact Info) Description 06/24/2022 Refill [facility], Diabetes and Metabolism [address] [place] [phone] Agapito Hicks MD [address] [place] [address] OF ENDOCRINOLOGY [place], [place] [phone] MEDICATION REFILL Social History Tobacco Use Types [...] Office Visit [facility] [address] [place] [phone] Santino Garsia MD [address] [facility] [address] [place] [phone] documented as of this encounter Visit Diagnoses Diagnosis Type 1 diabetes mellitus without complications (HCC) Type I (juvenile type) diabetes mellitus without mention of complication, not stated as uncontrolled documented in this encounter Care Teams Purchasing Analyst Relationship Specialty Start Date End Date Abdulaziz Ross MD [address] [facility] 20 [place] [phone] PCP - General 11/09/14 documented as of this encounter
--- OUTSIDE RECORDS SUMMARY | 2025-03-03 01:35 | XMS_ITS | Clinical Summary ---
Author Organization [facility] [employer] Address [address] [facility] [place] [address] Care Team Providers Care Supervisor Beet End Name Role Phone Abdulaziz Ross MD Primary Care Provider [phone] Source Comments [facility] [employer],non-owned Affiliates and Associated Physician Practices is amultiple site organization consisting of ambulatory clinics and hospital sitesin [place], [place] and [place]. This disclosure is being madepursuant to the Care Everywhere program and may not contain all information available regarding this patient. Last updated 18.[employer] Allergies No known active allergies Medications * [...] Each 11 05/02/2020 Active Continuous Blood Gluc [employer] (DEXCOM G6 PLUMBING AND HEATING CONTRACTOR) HARVINDER USE UTD 05/19/2020 Active Continuous Glucose [...] Orders Only [facility] [address] [place] [phone] Anita Finn MD Type 1 diabetes mellitus without complications 02/09/2025 Telephone [facility] [address] [place] [phone] Anita Finn MD 01/25/2025 11:20 AM EMBALMER ASSISTANT Office Visit [facility] [address] [place] [phone] Santino Garsia MD Type 1 diabetes mellitus [...] Comments Blood Pressure 111/79 01/25/2025 10:54 AM EMBALMER ASSISTANT Pulse 81 01/25/2025 10:54 AM EMBALMER ASSISTANT Temperature 36.6 C (97.8 F) 06/01/2024 10:26 AM CDT Respiratory Rate 18 11/25/2023 10:24 AM EMBALMER ASSISTANT Oxygen Saturation 95% 01/25/2025 10:54 AM EMBALMER ASSISTANT Inhaled Oxygen Concentration - - Weight 98.7 kg (217 lb 9.6 oz) 01/25/2025 10:54 AM EMBALMER ASSISTANT Height 188 cm (6' 2 ) 01/25/2025 10:54 AM EMBALMER ASSISTANT Body Mass Index 27.94 01/25/2025 10:54 AM EMBALMER ASSISTANT Plan of Treatment Upcoming Encounters Date Type Department Care Team (Late st Contact Info) Description 05/17/2025 10:00 AM CDT Office Visit [facility] [address] [facility], [place] [phone] Santino Garsia MD [address] [facility] [address] [place] [phone] Health Maintenance Due Date Last Done Comments [...] CARE (AMB) [facility] Routine 01/25/2025 11:08 AM EMBALMER ASSISTANT Type 1 diabetes mellitus without complications MICROALB/CREAT RATIO URINE RANDOM PANEL 06/30/2024 1:13 PM CDT COMPREHENSIVE METABOLIC PANEL 04/01/2024 9:34 AM CDT from Last 3 Months or Most Recently Relevant to Health Maintenance Results * HEMOGLOBIN A1C - POINT OF CARE (AMB) [facility] (01/25/2025 11:08 AM EMBALMER ASSISTANT) Hemoglobin A1c POCT 8.0 % [address] BLOOD SPECIMEN / Unknown 01/25/2025 11:08 AM EMBALMER ASSISTANT Santino Garsia MD LAB - POINT OF CARE ORDERABLES Performing Organization Address [facility] Co de Phone Number [place] [phone] [facility], [place] [address], [facility] [phone] * MICROALB/CREAT RATIO URINE RANDOM PANEL (06/30/2024 [...] within a diagnostic category. Test Performed at: [facility] [address] FELICITAS MUNOZ MD 06/30/2024 1:13 PM CDT 06/30/2024 1:16 PM CDT Santino Garsia MD LAB - URINE CHEMISTR Y ORDERABLES Performing Organization Address City/[facility]/ZIP Co de Phone Number [place] [address] [place] [address] * (ABNORMAL) COMPREHENSIVE METABOLIC PANEL (04/01/2024 9:34 [...] Comment: REPORT COMMENT: FASTING:NO Test Performed at: [facility] [address] FELICITAS MUNOZ MD 04/01/2024 9:34 AM CDT 04/01/2024 9:35 AM CDT Santino Garsia MD LAB - CHEMISTRY ALANA HOROWITZ [facility] Organization Address City/State/ZIP Co de Phone Number [address] [address] from Last 3 Months or Most Recently Relevant to Health Maintenance Care Teams Supervisor Beet End Relationship Specialty Start Date End Date Abdulaziz Ross MD [address] [facility] 20 [place] [address] PCP - General 11/09/14
[2025-03-03 02:00] LABS: Alkaline Phosphatase 142 U/L (38-126); Anion Gap 22 mmol/L (4-12); Aspartate Amino Transferase 33 U/L (17-59); Bilirubin,Total 1.5 mg/dL (0.2-1.3); Blood Urea Nitrogen 25 mg/dL (9-20); Calcium 9.9 mg/dL (8.4-10.2); Carbon Dioxide 17 mmol/L (22-30); Chloride 99 mmol/L (98-107); Estimated CRCL calculation 112 ml/min; Estimated Glomerular Filt Rate > 60; Glucose 356 mg/dL (65-110); Magnesium 1.9 mg/dL (1.6-2.3); Phosphorus 3.4 mg/dL (2.5-4.5); Potassium 4.6 mmol/L (3.4-5.0); Sodium 138 mmol/L (137-145)
--- NOTE | 2025-03-03 02:00 | ED_ITS ---
HPI - General Adult General Chief complaint: Recheck/Abnormal Lab/Rx Stated complaint: high blood sugar Time Seen by Provider: 03/03/25 01:16 History of Present Illness HPI narrative: Patient 34-year-old gentleman presents emergency department with chief complaint of elevated blood sugar. The patient reports that he drank some alcohol yesterday and reported that he started having nausea vomiting throughout the day patient states his blood sugars been reading high and is concerned that his insulin pump may not been working correctly. Patient also reports he has pain in the right flank area Related Data Allergies Allergy/AdvReac Type Severity Reaction Status Date / Time No Known Allergies Allergy Unverified 03/02/25 22:25 Review of Systems 2 Review of Systems: A 10 system review of systems was completed on the patient and is negative except for what is stated in the HPI. Nursing and ancillary documentation was reviewed. Exam 2 Narrative: GENERAL: Well-appearing, well-nourished, and in no acute distress. HEAD: Normocephalic, atraumatic. EYES: PERRLA and EOMI. ENT: Nares clear, no rhinorrhea or epistaxis. Mucous membranes moist. NECK: Supple. CHEST: Clear to auscultation. No respiratory distress. HEART: Regular rate and rhythm. No murmur heard. Normal peripheral pulses. ABDOMEN: Soft, nontender, nondistended, normal active bowel sounds. EXTREMITIES: Normal range of motion. No edema. SKIN: Warm, dry, no rash. NEURO: No focal deficits. Alert and oriented x3. PSYCH: Normal mood and affect. Course Vital Signs Vital signs: Vital Signs Temperature 36.5 C 03/02/25 22:21 Pulse Rate 116 H 03/02/25 22:21 Respiratory Rate 20 03/02/25 22:21 Blood Pressure 122/88 03/02/25 22:21 Pulse Oximetry 98 03/02/25 22:21 Oxygen Delivery Room Air 03/02/25 22:21 Temperature 36.5 C 03/02/25 22:21 Pulse Rate 93 03/03/25 04:47 Respiratory Rate 15 03/03/25 04:47 Blood Pressure 103/55 L 03/03/25 03:45 Pulse Oximetry 96 03/03/25 04:47 Oxygen Delivery Room Air 03/02/25 22:21 Medical Decision Making Vital Signs Vital Signs: Vital Signs Temperature 36.5 C 03/02/25 22:21 Pulse Rate 116 H 03/02/25 22:21 Respiratory Rate 20 03/02/25 22:21 Blood Pressure 122/88 03/02/25 22:21 Pulse Oximetry 98 03/02/25 22:21 Oxygen Delivery Room Air 03/02/25 22:21 Temperature 36.5 C 03/02/25 22:21 Pulse Rate 93 03/03/25 04:47 Respiratory Rate 15 03/03/25 04:47 Blood Pressure 103/55 L 03/03/25 03:45 Pulse Oximetry 96 03/03/25 04:47 Oxygen Delivery Room Air 03/02/25 22:21 Lab Data 03/03/25 01:19 03/03/25 01:19 Labs: Lab Results 03/02/25 03/03/25 03/03/25 Range/Units 22:27 01:19 01:22 WBC 23.7 H (4.5-10.0) K/mm3 RBC 5.19 (4.6-6.20) M/mm3 Hgb 15.3 (14.0-18.0) g/dL Hct 46.2 (42.0-52.0) % MCV 89.0 (80-100) fl MCH 29.5 (26-34) pg MCHC 33.1 (32-36) g/dl RDW 12.8 (11.5-14.5) % Plt Count 288 (150-375) k/mm3 MPV 9.8 (7.4-10.4) fl Immature Gran % (Auto) 0.7 H (0-0.5) % Neut % (Auto) 84.9 H (45.5-73.1) % Lymph % (Auto) 7.5 L (18.3-44.2) % Leake % (Auto) 6.6 (2.6-8.5) % Eos % (Auto) 0.0 (0-4.4) % Baso % (Auto) 0.3 (0.2-1.2) % Lymph # (Auto) 1.78 (0.9-3.2) K/mm3 Leake # (Auto) 1.6 H (0.1-0.6) K/mm3 Eos # (Auto) 0.0 (0-0.3) K/mm3 Baso # (Auto) 0.1 (0.0-0.1) K/mm3 Abs Immat Gran (auto) 0.17 H (0.00-0.031) K/mm3 Absolute Neuts (auto) 20.1 H (1.3-6.7) K/mm3 Absolute Nucleated RBC 0.000 (0.0-0.012) K/mm3 Nucleated RBC % 0.0 (0.0-0.2) % Sodium 138 (137-145) mmol/L Potassium 4.6 (3.4-5.0) mmol/L Chloride 99 (98-107) mmol/L Carbon Dioxide 17 L (22-30) mmol/L Anion Gap 22 H (4-12) mmol/L BUN 25 H (9-20) mg/dL Creatinine 0.93 (0.7-1.3) mg/dL Estim Creat Clear Calc 112 ml/min Estimated GFR > 60 (59 - ) Glucose 356 H (65-110) mg/dL POC Capillary Glucose 468 H 323 H (65-105) mg/dl Hemoglobin A1c 7.0 H (<5.7) % Calcium 9.9 (8.4-10.2) mg/dL Phosphorus 3.4 (2.5-4.5) mg/dL Magnesium 1.9 (1.6-2.3) mg/dL Total Bilirubin 1.5 H (0.2-1.3) mg/dL AST 33 (17-59) U/L ALT 42 (6-50) U/L Alkaline Phosphatase 142 H (38-126) U/L Total Protein 7.0 (6.3-8.2) g/dL Albumin 5.0 (3.5-5.1) g/dL Beta-Hydroxybutyrate/Acetoacetate 1.56 H (0.02-0.27) mmol/L Urine Color (Yellow) Urine Appearance (Clear) Urine pH (5.0-9.0) Ur Specific [place] (1.001-1.035) Urine Protein (Negative) mg/dL Urine Glucose (UA) (Negative) mg/dL Urine Ketones (Negative) mg/dL Ur Blood (Man) (Negative) Urine Nitrate (Negative) Urine Bilirubin (Negative) Urine Urobilinogen (<2.0) mg/dL Leukocyte Esterase Rfl (Negative) FATOU/UL Urine RBC (0-2) /hpf Urine WBC (0-3) /hpf Ur Squamous Epith Cells (Few) /hpf Urine Bacteria /hpf Urine Casts 03/03/25 03/03/25 03/03/25 Range/Units 02:54 03:13 04:18 WBC (4.5-10.0) K/mm3 RBC (4.6-6.20) M/mm3 Hgb (14.0-18.0) g/dL Hct (42.0-52.0) % MCV (80-100) fl MCH (26-34) pg MCHC (32-36) g/dl RDW (11.5-14.5) % Plt Count (150-375) k/mm3 MPV (7.4-10.4) fl Immature Gran % (Auto) (0-0.5) % Neut % (Auto) (45.5-73.1) % Lymph % (Auto) (18.3-44.2) % Leake % (Auto) (2.6-8.5) % Eos % (Auto) (0-4.4) % Baso % (Auto) (0.2-1.2) % Lymph # (Auto) (0.9-3.2) K/mm3 Leake # (Auto) (0.1-0.6) K/mm3 Eos # (Auto) (0-0.3) K/mm3 Baso # (Auto) (0.0-0.1) K/mm3 Abs Immat Gran (auto) (0.00-0.031) K/mm3 Absolute Neuts (auto) (1.3-6.7) K/mm3 Absolute Nucleated RBC (0.0-0.012) K/mm3 Nucleated RBC % (0.0-0.2) % Sodium (137-145) mmol/L Potassium (3.4-5.0) mmol/L Chloride (98-107) mmol/L Carbon Dioxide (22-30) mmol/L Anion Gap (4-12) mmol/L BUN (9-20) mg/dL Creatinine (0.7-1.3) mg/dL Estim Creat Clear Calc ml/min Estimated GFR (59 - ) Glucose (65-110) mg/dL POC Capillary Glucose 242 H 285 H (65-105) mg/dl Hemoglobin A1c (<5.7) % Calcium (8.4-10.2) mg/dL Phosphorus (2.5-4.5) mg/dL Magnesium (1.6-2.3) mg/dL Total Bilirubin (0.2-1.3) mg/dL AST (17-59) U/L ALT (6-50) U/L Alkaline Phosphatase (38-126) U/L Total Protein (6.3-8.2) g/dL Albumin (3.5-5.1) g/dL Beta-Hydroxybutyrate/Acetoacetate (0.02-0.27) mmol/L Urine Color Yellow (Yellow) Urine Appearance Clear (Clear) Urine pH 5.5 (5.0-9.0) Ur Specific [place] 1.039 H (1.001-1.035) Urine Protein Trace (Negative) mg/dL Urine Glucose (UA) 3+ H (Negative) mg/dL Urine Ketones 3+ H (Negative) mg/dL Ur Blood (Man) Negative (Negative) Urine Nitrate Negative (Negative) Urine Bilirubin Negative (Negative) Urine Urobilinogen 0.2 (<2.0) mg/dL Leukocyte Esterase Rfl Negative (Negative) FATOU/UL Urine RBC 0-2 (0-2) /hpf Urine WBC 0-5 (0-3) /hpf Ur Squamous Epith Cells None seen (Few) /hpf Urine Bacteria None seen /hpf Urine Casts 0-2 03/03/25 03/03/25 Range/Units 05:23 05:28 WBC (4.5-10.0) K/mm3 RBC (4.6-6.20) M/mm3 Hgb (14.0-18.0) g/dL Hct (42.0-52.0) % MCV (80-100) fl MCH (26-34) pg MCHC (32-36) g/dl RDW (11.5-14.5) % Plt Count (150-375) k/mm3 MPV (7.4-10.4) fl Immature Gran % (Auto) (0-0.5) % Neut % (Auto) (45.5-73.1) % Lymph % (Auto) (18.3-44.2) % Leake % (Auto) (2.6-8.5) % Eos % (Auto) (0-4.4) % Baso % (Auto) (0.2-1.2) % Lymph # (Auto) (0.9-3.2) K/mm3 Leake # (Auto) (0.1-0.6) K/mm3 Eos # (Auto) (0-0.3) K/mm3 Baso # (Auto) (0.0-0.1) K/mm3 Abs Immat Gran (auto) (0.00-0.031) K/mm3 Absolute Neuts (auto) (1.3-6.7) K/mm3 Absolute Nucleated RBC (0.0-0.012) K/mm3 Nucleated RBC % (0.0-0.2) % Sodium Pending (137-145) mmol/L Potassium Pending (3.4-5.0) mmol/L Chloride Pending (98-107) mmol/L Carbon Dioxide Pending (22-30) mmol/L Anion Gap Pending (4-12) mmol/L BUN Pending (9-20) mg/dL Creatinine Pending (0.7-1.3) mg/dL Estim Creat Clear Calc Pending ml/min Estimated GFR Pending (59 - ) Glucose Pending (65-110) mg/dL POC Capillary Glucose 229 H (65-105) mg/dl Hemoglobin A1c (<5.7) % Calcium Pending (8.4-10.2) mg/dL Phosphorus (2.5-4.5) mg/dL Magnesium (1.6-2.3) mg/dL Total Bilirubin (0.2-1.3) mg/dL AST (17-59) U/L ALT (6-50) U/L Alkaline Phosphatase (38-126) U/L Total Protein (6.3-8.2) g/dL Albumin (3.5-5.1) g/dL Beta-Hydroxybutyrate/Acetoacetate (0.02-0.27) mmol/L Urine Color (Yellow) Urine Appearance (Clear) Urine pH (5.0-9.0) Ur Specific [place] (1.001-1.035) Urine Protein (Negative) mg/dL Urine Glucose (UA) (Negative) mg/dL Urine Ketones (Negative) mg/dL Ur Blood (Man) (Negative) Urine Nitrate (Negative) Urine Bilirubin (Negative) Urine Urobilinogen (<2.0) mg/dL Leukocyte Esterase Rfl (Negative) FATOU/UL Urine RBC (0-2) /hpf Urine WBC (0-3) /hpf Ur Squamous Epith Cells (Few) /hpf Urine Bacteria /hpf Urine Casts Critical Care Time Critical Care Time Critical Care Time: Yes Total Critical Care Time: 75 Discharge Plan Discharge Clinical Impression: Diabetic ketoacidosis Patient Disposition: Still a Patient Condition: Stable Patient Language: Urdu Follow-up/Referrals: Abdulaziz Ross MD [Primary Care Provider] - Time of Disposition: 05:33
[2025-03-03 02:02] LABS: Beta-Hydroxybutyrate/Acetoacetate 1.56 mmol/L (0.02-0.27)
[2025-03-03 02:33] LABS: Alanine Aminotransferase 42 U/L (6-50)
[2025-03-03] MEDS: INSULIN HUMAN REGULAR (*BKC) 100 UNITS in SODIUM CHLORIDE 0.9% IV 99 ML 9.58 UNITS IV CONT (02:36)
[2025-03-03 03:02] LABS: Add Urine Microscopic? YES; Appearance Urine Clear (Clear); Bacteria Urine None Seen /hpf; Bilirubin Urine Negative (Negative); Blood Urine Negative (Negative); Color Urine Yellow (Yellow); Glucose Urine UA 3+ mg/dL (Negative); Ketones Urine 3+ mg/dL (Negative); Leukocyte Esterase Ur Negative LEU/UL (Negative); Nitrate Urine Negative (Negative); Non Pathogenic Casts 0-2; Protein Urine Trace mg/dL (Negative); RBC Urine 0-2 /hpf (0-2); Specific Grav Ur 1.039 (1.001-1.035); Squamous Epithelial Cell Urine None Seen /hpf (Few); Urobilinogen Urine 0.2 mg/dL (<2.0); WBC Urine 0-5 /hpf (0-3); pH Urine 5.5 (5.0-9.0)
[2025-03-03 03:15] LABS: Glucose Point of Care 242 mg/dl (65-105)
[2025-03-03] MEDS: KCL 20 MEQ/D5/0.45% SOD CHL 1,000 ML 150 ML IV CONT (03:20)
[2025-03-03 04:22] LABS: Glucose Point of Care 285 mg/dl (65-105)
[2025-03-03] MEDS: SODIUM CHLORIDE 0.9% IV 1,000 ML 999 ML IV CONT (05:27)
[2025-03-03 05:32] LABS: Glucose Point of Care 229 mg/dl (65-105)
[2025-03-03 05:42] LABS: Anion Gap 8 mmol/L (4-12); Blood Urea Nitrogen 22 mg/dL (9-20); Calcium 8.5 mg/dL (8.4-10.2); Carbon Dioxide 22 mmol/L (22-30); Chloride 106 mmol/L (98-107); Estimated CRCL calculation 141 ml/min; Estimated Glomerular Filt Rate > 60; Glucose 217 mg/dL (65-110); Sodium 136 mmol/L (137-145)
[2025-03-03 06:01] LABS: Amphetamine Screen Urine Negative (Negative); Barbiturate Screen Urine Negative (Negative); Benzodiazepines Screen Urine Negative (Negative); Cannabinoid Screen Urine Negative (Negative); Cocaine Screen Urine Negative (Negative); Methadone Screen Urine Negative (Negative); Opiate Screen Urine Positive (Negative); Phencyclidine Screen Urine Negative (Negative)
[2025-03-03 06:20] LABS: Glucose Point of Care 176 mg/dl (65-105)
[2025-03-03 06:44] LABS: Ethanol < 10 mg/dL (<10)
--- NOTE | 2025-03-03 06:50 | ADMGEN ---
This patient, Carl Camposshaw, was admitted to Intensive Care Unit-3. Patient/family oriented to hospital policies and general routines including ID bracelet, bed and alarms, visiting hours, pain management, procedures, bathroom and other care routines, personal items, smoking policy, room service/diet, and visiting hours. Information on how to activate the Rapid Response Team has been discussed. Patient/Family are encouraged to report perceived risks to care and to ask questions if they do not understand what they are told or what they should do.
[2025-03-03 07:35] LABS: Glucose Point of Care 164 mg/dl (65-105)
[2025-03-03 08:37] LABS: Glucose Point of Care 173 mg/dl (65-105)
[2025-03-03] MEDS: INSULIN GLARGINE (*BKC) 100 UNITS/ML 15 UNITS SUB-Q (08:48)
[2025-03-03] MEDS: FOLIC ACID 1 MG TABLET PO (08:49)
[2025-03-03] MEDS: THIAMINE HCL 100 MG TABLET PO (08:49)
--- NOTE | 2025-03-03 09:08 | PM.IMHP ---
H&P: HPI History of Present Illness Date/Time: 03/03/25 09:08 <Homero Santiago Student - Last Filed: 03/03/25 16:41> Chief Complaint: Elevated Blood Sugar <Homero Santiago Student - Last Filed: 03/03/25 16:41> Narrative: Carl Caba is a 34 year old male with past medical history of type 1 diabetes, alcohol abuse, and autism presenting with nausea/vomiting and high blood sugars. He has an insulin pump which he believes failed, and also thinks the drinking directly contributed to this episode. The nausea and vomiting began yesterday with associated left sided abdominal pain. After checking his blood sugar and realizing it was elevated he came to the emergency department. He states abdominal pain was probably a muscle strain due to vomiting, and that the pain is currently gone. He states he is feeling much better now since treatment. He has been urinating and denies any changes in bowel habits. Denies chest pain, abdominal pain, vision changes, headache, pleurisy, difficulty breathing, congestion, nausea, and vomiting. Workup Findings: Labs: Initial POC Glucose: 468. Serum glucose 4 hours later: 356 A1C: 7.0 Beta-Hydroxy Butyrate/Acetoacetate: 1.56 Anion Gap: 22 Urine: 3+ Glucose, 3+ Ketones, [place]: 1.039 Vitals: Initial: 122/88 blood pressure on 03/02/25 22:21 Lowest: 91/56 03/03/25 06:00 Current: 105/56 03/03/25 12:51 Imaging: Abdomen CT/Pelvis: No significant abnormalities seen <Homero Santiago Student - Last Filed: 03/03/25 16:41> PMFSH Past Medical History Medical History: Medical History (Updated 03/03/25 @ 15:57 by Homero Santiago, Student) Diabetes type 1 <Homero Santiago Student - Last Filed: 03/03/25 16:41> Surgical History Surgical History: Surgical History (Updated 03/03/25 @ 15:57 by Homero Santiago, Student) History of hernia repair <Homero Santiago Student - Last Filed: 03/03/25 16:41> Family History Family History: Family History (Updated 03/03/25 @ 16:05 by Homero Santiago, Student) Other Diabetes mellitus Disorder of thyroid, unspecified <Homero Santiago, Student - Last Filed: 03/03/25 16:41> Social History Social History: Social History Smoking status: Never smoker Alcohol intake: current Substance use: never Last use: alcohol 03/02/25 Do You Feel Safe in your Home?: Yes Lack of Transportation: No Lack of Food: Never True Current Housing: I Have Housing Concerned About Future Housing: No Difficulty Paying Gas/Electric Bills: No Difficulty Paying for Meds: No Currently Unemployed: No Education: High School Diploma/GED Difficulty w/ Childcare or Family Care: No Spiritual care concerns: No <Homero Santiago Student - Last Filed: 03/03/25 16:41> Meds Home Medications and Allergies Home medications: Home Medications ?Medication ?Instructions ?Recorded ?Confirmed ?Type blood-glucose sensor (Dexcom G6 03/03/25 03/03/25 History Sensor device) blood-glucose transmitter (Dexcom 03/03/25 03/03/25 History G6 Transmitter device) insulin lispro 100 unit/mL 03/03/25 History subcutaneous solution <Homero Santiago, Student - Last Filed: 03/03/25 16:41> Allergies/Adverse reactions: Allergies Allergy/AdvReac Type Severity Reaction Status Date / Time No Known Allergies Allergy Unverified 03/02/25 22:25 <Homero Santiago Student - Last Filed: 03/03/25 16:41> Vital Signs Vital Signs - 24 hr 03/02/25 22:21 03/03/25 03:00 03/03/25 03:45 Temperature 97.7 F Pulse Rate 116 H 101 H 103 H Respiratory Rate 20 21 H 15 Blood Pressure 122/88 102/58 L 103/55 L Pulse Oximetry 98 96 94 Oxygen Delivery Room Air 03/03/25 04:47 03/03/25 06:00 03/03/25 06:31 Temperature Pulse Rate 93 105 H 105 H Respiratory Rate 15 14 15 Blood Pressure 91/56 L 116/65 Pulse Oximetry 96 96 97 Oxygen Delivery 03/03/25 08:00 Temperature 98.7 F Pulse Rate 107 H Respiratory Rate 20 Blood Pressure 112/73 Pulse Oximetry 94 Oxygen Delivery <Homero Santiago Student - Last Filed: 03/03/25 16:41> Exam Narrative: GENERAL: Well-appearing, well-nourished, and in no acute distress. HEAD: Normocephalic, atraumatic. EYES: PERRLA and EOMI bilaterally. Sclera normal. ENT: No rhinorrhea or epistaxis. Mucous membranes moist. NECK: Supple. CHEST: Clear to auscultation. No respiratory distress. HEART: Regular rate and rhythm. ABDOMEN: Soft, nontender, nondistended, normal active bowel sounds. EXTREMITIES: Normal range of motion. No edema. SKIN: Warm, dry, no rash. NEURO: No focal deficits. Alert and oriented x3. <Homero Santiago, Student - Last Filed: 03/03/25 16:41> H&P: Results Labs Labs: Short CBC 03/03/25 Range/Units 01:19 WBC 23.7 H (4.5-10.0) K/mm3 Hgb 15.3 (14.0-18.0) g/dL Hct 46.2 (42.0-52.0) % Plt Count 288 (150-375) k/mm3 BMP 03/03/25 03/03/25 01:19 05:28 Sodium 138 136 L Potassium 4.6 4.0 Chloride 99 106 Carbon Dioxide 17 L 22 BUN 25 H 22 H Creatinine 0.93 0.73 Glucose 356 H 217 H Calcium 9.9 8.5 Liver Function 03/03/25 Range/Units 01:19 Total Bilirubin 1.5 H (0.2-1.3) mg/dL AST 33 (17-59) U/L ALT 42 (6-50) U/L Alkaline Phosphatase 142 H (38-126) U/L Albumin 5.0 (3.5-5.1) g/dL Urine 03/03/25 Range/Units 02:54 Urine Color Yellow (Yellow) Urine Appearance Clear (Clear) Urine pH 5.5 (5.0-9.0) Ur Specific [place] 1.039 H (1.001-1.035) Urine Protein Trace (Negative) mg/dL Urine Glucose (UA) 3+ H (Negative) mg/dL <Homero Santiago Student - Last Filed: 03/03/25 16:41> Assessment and Plan Assessment and plan (1) Diabetic ketoacidosis: Code(s): E11.10 - Type 2 diabetes mellitus with ketoacidosis without coma <Homero Santiago Student - Last Filed: 03/03/25 16:41> Status: Acute <Homero Santiago Student - Last Filed: 03/03/25 16:41> (2) Diabetes type 1: Code(s): E10.9 - Type 1 diabetes mellitus without complications <Homero Santiago Student - Last Filed: 03/03/25 16:41> Status: Acute <Homero Santiago Student - Last Filed: 03/03/25 16:41> (3) Alcohol abuse: Code(s): F10.10 - Alcohol abuse, uncomplicated <Homero Santiago Student - Last Filed: 03/03/25 16:41> Status: Acute <Maximo Kiser - Last Filed: 03/03/25 16:41> Assessment and Plan: (1) Diabetic ketoacidosis: Code(s): E10.10 - Type 1 diabetes mellitus with ketoacidosis without coma Status: Acute Assessment and Plan: -Patient was admitted with DKA and was given IVF bolus and started on infusion -Insulin infusion was started and Q1H glucose monitoring is being done -Serial labs were done -Patient's anion gap has now closed and he is asymptomatic -Start him on diabetic diet -Consult dietitian and certified adaptive physical educator - Once patient is able to get his insulin pump from home we will verify with so working properly and then transition back to his insulin pump. - After initial success with a serum glucose measured 185 and a closed anion gap, the serum glucose rebounded to 487 at 13:15 on 03/03/25 - Family brought insulin pump afternoon of 03/03/25 and care will be given with it in hospital when able - According to patient pump doesn't read over a glucose of 400 - 5 units 1x was administered, with a POC glucose test an hour later - Q1H POC glucose measurements with 5 unit administration given until POC glucose under 400 (2) Alcohol abuse: Code(s): F10.10 - Alcohol abuse, uncomplicated Status: Acute Assessment and Plan: - Patient admits to heavy drinking over last few weeks. Ethanol level on presentation was negative - Monitor for withdrawal symptoms with CIWA monitoring - LFTs within normal limits <Homero Santiago, Student - Last Filed: 03/03/25 16:41> (1) Diabetic ketoacidosis: Code(s): E10.10 - Type 1 diabetes mellitus with ketoacidosis without coma -Patient was admitted with DKA and was given IVF bolus and started on infusion -Insulin infusion was started and Q1H glucose monitoring is being done -Serial labs were done -Patient's anion gap has now closed and he is asymptomatic -Start him on diabetic diet -Consult dietitian and certified adaptive physical educator - Once patient is able to get his insulin pump from home we will verify with so working properly and then transition back to his insulin pump. - After initial success with a serum glucose measured 185 and a closed anion gap, the serum glucose rebounded to 487 at 13:15 on 03/03/25 - Family brought insulin pump afternoon of 03/03/25 and care will be given with it in hospital when able - According to patient pump doesn't read over a glucose of 400 - 5 units 1x was administered, with a POC glucose test an hour later - Q1H POC glucose measurements with 5 unit administration given until POC glucose under 400 (2) Alcohol abuse: F10.10 - Alcohol abuse, uncomplicated Status: Acute Assessment and Plan: - Patient admits to heavy drinking over last few weeks. Ethanol level on presentation was negative - Monitor for withdrawal symptoms with CIWA monitoring - LFTs within normal limits <Rachel Capellan APRN - Last Filed: 03/03/25 16:42> Quality VTE Prophylaxis VTE prophylaxis: mechanical ordered <Rachel Capellan APRN - Last Filed: 03/03/25 16:42> Hospitalist MIPS Advance Care Plan I have confirmed that the patient's Advanced Care Plan is present, code status is documented, or surrogate decision maker is listed in patient medical record.: Yes <Rachel Capellan APRN - Last Filed: 03/03/25 16:42> Medication Reconciliation I have utilized all available resources to obtain, update and review the patients current medications (includes all prescriptions, OTC, herbals, cannabis, and nutritional supplements).: Yes <Rachel Capellan APRN - Last Filed: 03/03/25 16:42>
--- NOTE | 2025-03-03 09:50 | WPDCNINT ---
Assessment and Plan Assessment and plan (1) Diabetic ketoacidosis: Code(s): E11.10 - Type 2 diabetes mellitus with ketoacidosis without coma Status: Acute Assessment and Plan: Patient was admitted with DKA and was given IVF bolus and started on infusion Insulin infusion was started and Q1H glucose monitoring is being done Serial labs were done Patient's anion gap has now closed and he is asymptomatic He does not have his insulin pump with him. I will transition to subcutaneous since Start him on diabetic diet Consult dietitian and clinical systems educator Once patient is able to get his insulin pump from home we will verify with so working properly and then transition back to his insulin pump. (2) Alcohol abuse: Code(s): F10.10 - Alcohol abuse, uncomplicated Status: Acute Assessment and Plan: Patient admits to heavy drinking over last few weeks. Ethanol level on presentation was negative Monitor for withdrawal symptoms with CIWA monitoring Monitor LFTs Thiamine and folic acid Plan DVT prophylaxis -SCDs Nutrition -diabetic diet Code Status - Full Code Transfer out ICU today Cracker Off Consult Note Consult date: 03/03/25 Reason for consult: DKA HPI: Carl Caba is a 34 year old male with past medical history of autism, diabetes and possible depression presented with chief complaint of nausea vomiting and high blood sugars. Patient has been drinking heavily for last few weeks. He states he drinks 2 wine glasses, 2 1 colors and few shots every day for last few weeks. He also has insulin pump which he states was likely clogged up or out of insulin. He does not know the settings of his insulin pump. He states that yesterday he started having nausea vomiting and abdominal pain. He checked his blood sugar and they were reading high hence he came to the ER. Workup in the ER showed normal vital signs Creatinine was 0.93 bicarb is 17 blood sugar 356 white count 23.7 anion gap was elevated at 22. Beta hydroxybutyrate was 1.56. CT scan of the abdomen pelvis was negative For any abnormality. He was diagnosed with DKA and started on insulin infusion admitted to ICU This morning when I evaluated the patient he states the symptoms had completely resolved and he denies any nausea vomiting abdominal pain at this time. He is hungry and would like to eat food. Patient denies fever, chest pain, shortness of breath, cough, nausea vomiting, abdominal pain,, diarrhea, headache or constipation. All other systems were reviewed and were neg Review of Systems Review of Systems: All systems reviewed & are unremarkable except as noted in HPI and below (HPI) [facility] Past Medical History Medical History (Updated 03/03/25 @ 09:54 by Erickson Leigh MD) Diabetes mellitus Social History Social History Smoking status: Never smoker Alcohol intake: current Substance use: never Last use: alcohol 03/02/25 Do You Feel Safe in your Home?: Yes Lack of Transportation: No Lack of Food: Never True Current Housing: I Have Housing Concerned About Future Housing: No Difficulty Paying Gas/Electric Bills: No Difficulty Paying for Meds: No Currently Unemployed: No Education: High School Diploma/GED Difficulty w/ Childcare or Family Care: No Spiritual care concerns: No Meds Home Medications and Allergies Allergies Allergy/AdvReac Type Severity Reaction Status Date / Time No Known Allergies Allergy Unverified 03/02/25 22:25 Vital Signs Vital Signs - 24 hr 03/02/25 22:21 03/03/25 03:00 03/03/25 03:45 Temperature 36.5 C Pulse Rate 116 H 101 H 103 H Respiratory Rate 20 21 H 15 Blood Pressure 122/88 102/58 L 103/55 L Pulse Oximetry 98 96 94 Oxygen Delivery Room Air 03/03/25 04:47 03/03/25 06:00 03/03/25 06:31 Temperature Pulse Rate 93 105 H 105 H Respiratory Rate 15 14 15 Blood Pressure 91/56 L 116/65 Pulse Oximetry 96 96 97 Oxygen Delivery 03/03/25 08:00 03/03/25 08:00 Temperature 37.1 C Pulse Rate 107 H 115 H Respiratory Rate 20 Blood Pressure 112/73 Pulse Oximetry 94 Oxygen Delivery Exam Narrative: General: Pt is alert awake and in NAD Lungs/Chest: Trachea central Clear BS B/L, No crackles or wheezing. Cardiac: RRR. Normal S1 S2. No murmurs Circulation: Pedal pulses are intact and symmetrical. Abdomen: Normal bowel sounds.. Soft. NT. ND. Extremities: No clubbing, cyanosis or edema. Warm : Friedman in place Neurologic: Follows commands. Moves all 4 extremities PERRL Skin: No Rash Results Labs 03/03/25 01:19 03/03/25 05:28 Labs: Impressions Abdomen/Pelvis CT 03/03/25 06:08 Impression: No significant abnormality seen. Short CBC 03/03/25 Range/Units 01:19 WBC 23.7 H (4.5-10.0) K/mm3 Hgb 15.3 (14.0-18.0) g/dL Hct 46.2 (42.0-52.0) % Plt Count 288 (150-375) k/mm3 BMP 03/03/25 03/03/25 01:19 05:28 Sodium 138 136 L Potassium 4.6 4.0 Chloride 99 106 Carbon Dioxide 17 L 22 BUN 25 H 22 H Creatinine 0.93 0.73 Glucose 356 H 217 H Calcium 9.9 8.5 Liver Function 03/03/25 Range/Units 01:19 Total Bilirubin 1.5 H (0.2-1.3) mg/dL AST 33 (17-59) U/L ALT 42 (6-50) U/L Alkaline Phosphatase 142 H (38-126) U/L Albumin 5.0 (3.5-5.1) g/dL Urine 03/03/25 Range/Units 02:54 Urine Color Yellow (Yellow) Urine Appearance Clear (Clear) Urine pH 5.5 (5.0-9.0) Ur Specific [place] 1.039 H (1.001-1.035) Urine Protein Trace (Negative) mg/dL Urine Glucose (UA) 3+ H (Negative) mg/dL Quality VTE Prophylaxis VTE prophylaxis: mechanical ordered Hospitalist MIPS Advance Care Plan I have confirmed that the patient's Advanced Care Plan is present, code status is documented, or surrogate decision maker is listed in patient medical record.: Yes Medication Reconciliation I have utilized all available resources to obtain, update and review the patients current medications (includes all prescriptions, OTC, herbals, cannabis, and nutritional supplements).: Yes
[2025-03-03 09:57] LABS: Anion Gap 8 mmol/L (4-12); Blood Urea Nitrogen 18 mg/dL (9-20); Calcium 8.1 mg/dL (8.4-10.2); Carbon Dioxide 21 mmol/L (22-30); Chloride 107 mmol/L (98-107); Estimated CRCL calculation 146 ml/min; Estimated Glomerular Filt Rate > 60; Glucose 185 mg/dL (65-110); Potassium 4.4 mmol/L (3.4-5.0); Sodium 136 mmol/L (137-145)
[2025-03-03 12:00] LABS: Glucose Point of Care 359 mg/dl (65-105)
[2025-03-03] MEDS: INSULIN ASPART (*BKC) 100 UNITS/ML SUB-Q ×2 (12:01→15:52)
[2025-03-03 13:37] LABS: Anion Gap 10 mmol/L (4-12); Blood Urea Nitrogen 20 mg/dL (9-20); Calcium 7.9 mg/dL (8.4-10.2); Carbon Dioxide 20 mmol/L (22-30); Chloride 103 mmol/L (98-107); Estimated CRCL calculation 132 ml/min; Estimated Glomerular Filt Rate > 60; Glucose 487 mg/dL (65-110); Potassium 4.6 mmol/L (3.4-5.0); Sodium 133 mmol/L (137-145)
[2025-03-03 14:08] LABS: MRSA (PCR) NOT DETECTED (NOT DETECTE)
[2025-03-03 15:11] LABS: Glucose Point of Care 437 mg/dl (65-105)
[2025-03-03 16:55] LABS: Glucose Point of Care 378 mg/dl (65-105)
[2025-03-03 17:59] LABS: Anion Gap 8 mmol/L (4-12); Blood Urea Nitrogen 22 mg/dL (9-20); Calcium 8.3 mg/dL (8.4-10.2); Carbon Dioxide 23 mmol/L (22-30); Chloride 102 mmol/L (98-107); Estimated CRCL calculation 132 ml/min; Estimated Glomerular Filt Rate > 60; Glucose 356 mg/dL (65-110); Potassium 3.9 mmol/L (3.4-5.0); Sodium 133 mmol/L (137-145)
[2025-03-03 21:03] LABS: Glucose Point of Care 100 mg/dl (65-105)
[2025-03-03] MEDS: DEXTROSE 50% 25 GM/50 ML SYRINGE IV PUSH (21:54)
[2025-03-03 22:12] LABS: Glucose Point of Care 45 mg/dl (65-105)
[2025-03-03 22:12] LABS: Glucose Point of Care 112 mg/dl (65-105)
[2025-03-03 23:03] LABS: Anion Gap 6 mmol/L (4-12); Blood Urea Nitrogen 21 mg/dL (9-20); Calcium 8.3 mg/dL (8.4-10.2); Carbon Dioxide 27 mmol/L (22-30); Chloride 104 mmol/L (98-107); Estimated CRCL calculation 131 ml/min; Estimated Glomerular Filt Rate > 60; Glucose 99 mg/dL (65-110); Potassium 3.5 mmol/L (3.4-5.0); Sodium 137 mmol/L (137-145)
[2025-03-03 23:42] LABS: Glucose Point of Care 97 mg/dl (65-105)
[2025-03-04 01:12] LABS: Glucose Point of Care 56 mg/dl (65-105)
[2025-03-04] MEDS: DEXTROSE 50% 25 GM/50 ML SYRINGE IV PUSH (01:12)
[2025-03-04 01:37] LABS: Glucose Point of Care 145 mg/dl (65-105)
[2025-03-04 02:01] LABS: Glucose Point of Care 143 mg/dl (65-105)
[2025-03-04 04:17] LABS: Glucose Point of Care 120 mg/dl (65-105)
[2025-03-04 06:00] VITALS: BP 118/73; PULSE 86; RESP 12; TEMP 36.1; O2SAT 97
[2025-03-04 06:08] LABS: Glucose Point of Care 168 mg/dl (65-105)
[2025-03-04 06:46] LABS: Hematocrit 40.3 % (42.0-52.0); Hemoglobin 13.1 g/dL (14.0-18.0); Mean Corpuscular HGB Conc 32.5 g/dl (32-36); Mean Corpuscular Hemoglobin 29.4 pg (26-34); Mean Corpuscular Volume 90.4 fl (80-100); Mean Platelet Volume 9.9 fl (7.4-10.4); Platelet Count Result 223 k/mm3 (150-375); Red Blood Count 4.46 M/mm3 (4.6-6.20); Red Cell Distribution Width 13.2 % (11.5-14.5); White Blood Count 10.9 K/mm3 (4.5-10.0)
--- NOTE | 2025-03-04 06:51 | PC.NURSE ---
During report I was told that pt was started back on his insulin pump and was ACHS aucpatricia. His blood glucose was 100 at 2040. Pt called the nurses station saying his pump was showing he was low at approx 2139. Pt's blood glucose was found to be 45 at 214. Dextrose 50% syringe 12.5mg was administered IV push per the hypoglycemia protocol. Then at 2210 pts blood glucose was 112. Blood glucose was 97 at 2340. I went to check on pt at approx 0100 he looked to be perspiring so I woke him up and checked his blood glucose it was 56. Again 12.5mg of Dextrose 50% syringe was administered IV as well as some juice lolly crackers and peanut butter. At 0159 pt's blood glucose was 143. I called Dr. Kelly and made him aware of the blood glucose results and my administration of the dextrose 50%. He gave orders to hold the insulin pump and put the pt on q2hr auccchecks. I then went into the pt's room and removed the insulin pump and placed it in a bag with is name. At 0400 the pt's blood glucose was 120. All of the blood glucoses i am referring to are from the [facility] blood glucose monitor.
[2025-03-04 07:11] LABS: Alanine Aminotransferase 26 U/L (6-50); Albumin Level 3.4 g/dL (3.5-5.1); Alkaline Phosphatase 89 U/L (38-126); Anion Gap 6 mmol/L (4-12); Aspartate Amino Transferase 29 U/L (17-59); Bilirubin,Total 0.9 mg/dL (0.2-1.3); Blood Urea Nitrogen 15 mg/dL (9-20); Calcium 7.9 mg/dL (8.4-10.2); Carbon Dioxide 26 mmol/L (22-30); Chloride 105 mmol/L (98-107); Estimated CRCL calculation 150 ml/min; Estimated Glomerular Filt Rate > 60; Glucose 153 mg/dL (65-110); Magnesium 1.9 mg/dL (1.6-2.3); Potassium 4.1 mmol/L (3.4-5.0); Sodium 137 mmol/L (137-145)
[2025-03-04 07:57] LABS: Glucose Point of Care 218 mg/dl (65-105)
[2025-03-04 08:00] VITALS: BP 118/73; BP 126/92; PULSE 86; RESP 18; TEMP 36.6; O2SAT 98
[2025-03-04] MEDS: INSULIN ASPART (*BKC) 100 UNITS/ML SUB-Q ×3 (08:24→12:47)
[2025-03-04] MEDS: THIAMINE HCL 100 MG TABLET PO (08:25)
[2025-03-04] MEDS: FOLIC ACID 1 MG TABLET PO (08:25)
[2025-03-04] MEDS: INSULIN GLARGINE (*BKC) 100 UNITS/ML 15 UNITS SUB-Q (09:23)
[2025-03-04 11:03] LABS: Glucose Point of Care 251 mg/dl (65-105)
[2025-03-04 12:39] LABS: Glucose Point of Care 218 mg/dl (65-105)
[2025-03-04 13:01] VITALS: BMI 28.4
[2025-03-04 13:09] LABS: Anion Gap 8 mmol/L (4-12); Blood Urea Nitrogen 14 mg/dL (9-20); Calcium 8.5 mg/dL (8.4-10.2); Carbon Dioxide 27 mmol/L (22-30); Chloride 102 mmol/L (98-107); Estimated CRCL calculation 154 ml/min; Estimated Glomerular Filt Rate > 60; Glucose 213 mg/dL (65-110); Sodium 137 mmol/L (137-145)
--- NOTE | 2025-03-04 13:38 | P.DS_ITS ---
DS: Admitting Diagnosis Discharge Date 03/04/25 <Homero Santiago Last Filed: 03/04/25 14:29> Admitting Diagnosis DKA/Elevated Blood Sugar <Homero Santiago Last Filed: 03/04/25 14:29> DS: Discharge Diagnosis Discharge Diagnosis (1) Diabetic ketoacidosis: Qualifiers: Diabetes mellitus complication detail: without coma Diabetes mellitus type: type 1 Qualified Code(s): E10.10 - Type 1 diabetes mellitus with ketoacidosis without coma <Homero Santiago, Last Filed: 03/04/25 14:29> Code(s): E11.10 - Type 2 diabetes mellitus with ketoacidosis without coma <Homero Santiago, - Last Filed: 03/04/25 14:29> Status: Acute <Homero Santiago, Last Filed: 03/04/25 14:29> (2) Diabetes type 1: Qualifiers: Diabetes mellitus complication status: with ketoacidosis <Homero Santiago, - Last Filed: 03/04/25 14:29> Code(s): E10.9 - Type 1 diabetes mellitus without complications <Homero Santiago, Last Filed: 03/04/25 14:29> Status: Acute <Homero Santiago, - Last Filed: 03/04/25 14:29> (3) Alcohol abuse: Code(s): F10.10 - Alcohol abuse, uncomplicated <Homero Santiago, - Last Filed: 03/04/25 14:29> Status: Acute <Homero Santiago - Last Filed: 03/04/25 14:29> DS: Summary Hospital Course Reason for hospitalization: DKA <Homero Santiago Last Filed: 03/04/25 14:29> Hospital Course: Patient is a 34-year-old male presenting with elevated blood sugars and DKA. Several issues were addressed during his stay. (1) Diabetic ketoacidosis: - Patient presented to the ER and evaluated for elevated blood sugars as measured by the patient, along with nausea and vomiting - During presentation the following findings were notable - Initial POC and serum glucose were significantly elevated at 468 and 356 respectively - Ketones were elevated in the blood - Glucose and ketones were measured in the urine - Elevated anion gap of 22 was also present - Vital signs were within normal limits - Patient was started on DKA protocol - IV fluid and infusion of insulin were started with hourly glucose monitoring - Anion gap was corrected and patient was admitted to ICU for DKA management - Serial labs were done over the course of the stay to ascertain treatment efficacy - Dietitian was consulted and a diabetic diet was started - Following correction of the DKA, serum glucose was measured at 185, the serum glucose rebounded and attempts were made at control with sliding scale and basal Lantus - The family brought the patients pump on 03/03/25, and glucose was lowered to a suitable level for function - Overnight from 03/03-03/04 while utilizing the insulin pump, hypoglycemia occurred and care was converted back to sliding scale with basal Lantus - A unmanned aircraft systems roboticist was consulted - Control over glucose levels was maintained through the afternoon of 03/04/25 - Shared decision making was utilized with mother and she was counseled on signs and symptoms to look out for - She states she will monitor closely and discontinue pump if problems occur - If problems occur, will instead utilize manual insulin injections - Has fast acting insulin and will be discharged with prescription for basal insulin (2) Alcohol abuse: - On presentation, patient admits to heavy drinking over last few weeks - Ethanol level on presentation was negative - Patient was monitored for withdrawal symptoms with CIWA monitoring - Liver function tests were within normal limits - Alkaline phosphatase was elevated on admission labs but as of 03/04/25 were back to normal limits - Thiamine and folic acid were supplemented over the course of the stay <Homero Santiago, Student - Last Filed: 03/04/25 14:29> Patient is a 34-year-old male presenting with elevated blood sugars and DKA. Several issues were addressed during his stay. (1) Diabetic ketoacidosis: - Patient presented to the ER and evaluated for elevated blood sugars as measured by the patient, along with nausea and vomiting - During presentation the following findings were notable - Initial POC and serum glucose were significantly elevated at 468 and 356 respectively - Ketones were elevated in the blood - Glucose and ketones were measured in the urine - Elevated anion gap of 22 was also present - Vital signs were within normal limits - Patient was started on DKA protocol - IV fluid and infusion of insulin were started with hourly glucose monitoring - Anion gap was corrected and patient was admitted to ICU for DKA management - Serial labs were done over the course of the stay to ascertain treatment efficacy - Dietitian was consulted and a diabetic diet was started - Following correction of the DKA, serum glucose was measured at 185 when in ICU, the serum glucose rebounded and attempts were made at control with sliding scale and basal Lantus - The family brought the patients pump on 03/03/25, and glucose was lowered to a suitable level for function - Overnight from 03/03-03/04 while utilizing the insulin pump, hypoglycemia occurred and care was converted back to sliding scale with basal Lantus - A unmanned aircraft systems roboticist was consulted - Control over glucose levels was maintained through the afternoon of 03/04/25 repeated bmp- no anion gap pt and mother want to be discharged today a with a close f/u with endocrinology - Shared decision making was utilized with mother and she was counseled on signs and symptoms to look out for - She states she will monitor closely and discontinue pump if problems occur - If problems occur, will instead utilize manual insulin injections - Has reg insulin, needles ans other supples at home and will be discharged with prescription for lantus (2) Alcohol abuse: - On presentation, patient admits to heavy drinking over last few weeks - Ethanol level on presentation was negative - Patient was monitored for withdrawal symptoms with CIWA monitoring - Liver function tests were within normal limits - Alkaline phosphatase was elevated on admission labs but as of 03/04/25 were back to normal limits - Thiamine and folic acid were supplemented over the course of the stay <Rachel Capellan APRN - Last Filed: 03/04/25 14:37> Time Spent with Patient Time attestation: Total time spent providing and/or coordinating discharge services: <Homero Santiago, Student - Last Filed: 03/04/25 14:29> Exam Narrative: GENERAL: Well-appearing, well-nourished, and in no acute distress. HEAD: Normocephalic, atraumatic. EYES: PERRLA and EOMI bilaterally. Sclera normal. ENT: No rhinorrhea or epistaxis. Mucous membranes moist. NECK: Supple. CHEST: Clear to auscultation. No respiratory distress. HEART: Regular rate and rhythm. ABDOMEN: Soft, nontender, nondistended, normal active bowel sounds. EXTREMITIES: Normal range of motion. No edema. SKIN: Warm, dry, no rash. NEURO: No focal deficits. Alert and oriented x3. <Rachel Capellan, MEDICAL CODER - Last Filed: 03/04/25 14:37> Const: General: comfortable <Rachel Capellan MEDICAL CODER - Last Filed: 03/04/25 14:37> DS: Data Data Completed and Pending Labs on day of discharge: Labs from last 24 hours 03/04/25 03/04/25 03/04/25 12:50 12:34 10:44 WBC RBC Hgb Hct MCV MCH MCHC RDW Plt Count MPV Sodium 137 Potassium 4.0 Chloride 102 Carbon Dioxide 27 Anion Gap 8 BUN 14 Creatinine 0.66 L Estim Creat Clear Calc 154 Estimated GFR > 60 Glucose 213 H POC Capillary Glucose 218 H 251 H Calcium 8.5 Magnesium Total Bilirubin AST ALT Alkaline Phosphatase Total Protein Albumin Nasal MRSA (PCR) 03/04/25 03/04/25 03/04/25 07:54 06:07 06:06 WBC 10.9 H RBC 4.46 L Hgb 13.1 L Hct 40.3 L MCV 90.4 MCH 29.4 MCHC 32.5 RDW 13.2 Plt Count 223 MPV 9.9 Sodium 137 Potassium 4.1 Chloride 105 Carbon Dioxide 26 Anion Gap 6 BUN 15 D Creatinine 0.68 L Estim Creat Clear Calc 150 Estimated GFR > 60 Glucose 153 H POC Capillary Glucose 218 H 168 H Calcium 7.9 L Magnesium 1.9 Total Bilirubin 0.9 AST 29 ALT 26 Alkaline Phosphatase 89 Total Protein 6.0 L Albumin 3.4 L Nasal MRSA (PCR) 03/04/25 03/04/25 03/04/25 04:03 01:59 01:35 WBC RBC Hgb Hct MCV MCH MCHC RDW Plt Count MPV Sodium Potassium Chloride Carbon Dioxide Anion Gap BUN Creatinine Estim Creat Clear Calc Estimated GFR Glucose POC Capillary Glucose 120 H 143 H 145 H Calcium Magnesium Total Bilirubin AST ALT Alkaline Phosphatase Total Protein Albumin Nasal MRSA (PCR) 03/04/25 03/03/25 03/03/25 01:09 23:40 22:40 WBC RBC Hgb Hct MCV MCH MCHC RDW Plt Count MPV Sodium 137 Potassium 3.5 Chloride 104 Carbon Dioxide 27 Anion Gap 6 BUN 21 H Creatinine 0.79 Estim Creat Clear Calc 131 Estimated GFR > 60 Glucose 99 POC Capillary Glucose 56 L* 97 Calcium 8.3 L Magnesium Total Bilirubin AST ALT Alkaline Phosphatase Total Protein Albumin Nasal MRSA (PCR) 03/03/25 03/03/25 03/03/25 22:10 21:46 20:41 WBC RBC Hgb Hct MCV MCH MCHC RDW Plt Count MPV Sodium Potassium Chloride Carbon Dioxide Anion Gap BUN Creatinine Estim Creat Clear Calc Estimated GFR Glucose POC Capillary Glucose 112 H 45 L* 100 Calcium Magnesium Total Bilirubin AST ALT Alkaline Phosphatase Total Protein Albumin Nasal MRSA (PCR) 03/03/25 03/03/25 03/03/25 17:43 16:42 15:08 WBC RBC Hgb Hct MCV MCH MCHC RDW Plt Count MPV Sodium 133 L Potassium 3.9 Chloride 102 Carbon Dioxide 23 Anion Gap 8 BUN 22 H Creatinine 0.78 Estim Creat Clear Calc 132 Estimated GFR > 60 Glucose 356 H POC Capillary Glucose 378 H 437 H Calcium 8.3 L Magnesium Total Bilirubin AST ALT Alkaline Phosphatase Total Protein Albumin Nasal MRSA (PCR) 03/03/25 12:43 WBC RBC Hgb Hct MCV MCH MCHC RDW Plt Count MPV Sodium Potassium Chloride Carbon Dioxide Anion Gap BUN Creatinine Estim Creat Clear Calc Estimated GFR Glucose POC Capillary Glucose Calcium Magnesium Total Bilirubin AST ALT Alkaline Phosphatase Total Protein Albumin Nasal MRSA (PCR) Not detected <Homero Santiago Student - Last Filed: 03/04/25 14:29> Discharge Plan Discharge Attending physician on discharge: Angel Ron <Homero Santiago Student - Last Filed: 03/04/25 14:29> Angel Ron <Rachel Capellan, MEDICAL CODER - Last Filed: 03/04/25 14:37> Consulting providers: Erickson Leigh <Homero Santiago Student - Last Filed: 03/04/25 14:29> Discharging Clinician: Rachel Capellan <Homero Santiago Student - Last Filed: 03/04/25 14:29> Rachel Capellan <Rachel Capellan, MEDICAL CODER - Last Filed: 03/04/25 14:37> Patient Disposition: Home <Maximo Kiser - Last Filed: 03/04/25 14:29> Activity: may shower <Homero Santiago Student - Last Filed: 03/04/25 14:29> may shower <Rachel Capellan APRN - Last Filed: 03/04/25 14:37> Diet: diabetic <Homero Santiago Student - Last Filed: 03/04/25 14:29> diabetic <Rachel Capellan APRN - Last Filed: 03/04/25 14:37> Discharge Instructions: please utilize insulin pump. Monitor BS very closely. If any low bS, remove pump and use SS and lantus- will send rx for lantus as requested. Since there is a big drop in hga1c, please follow up with endocrinology within a week to possibly adjust rate of insulin pump. Limit/eliminate alcohol consumption, and ensure you are eating well balanced diabetic friendly meals. If you become sick- any resp issues, nausea or vomiting, monitor your bs even more closer to avoid hypoglycemia. <Homero Santiago Student - Last Filed: 03/04/25 14:29> Patient Instructions: Antibiotic Form, Basic Carbohydrate Counting (DC) <Maximo Kiser - Last Filed: 03/04/25 14:29> Patient Language: Kiswahili <Maximo Kiser - Last Filed: 03/04/25 14:29> Stand Alone Forms: General Discharge Information <Maximo Kiser - Last Filed: 03/04/25 14:29> Follow-up/Referrals: [facility] [Provider Group] - 1 Week Abdulaziz Ross MD [Primary Care Provider] - 1 Week <Maximo Kiser - Last Filed: 03/04/25 14:29> Discharge Medications: New insulin glargine [Lantus Solostar U-100 Insulin] 100 unit/mL (3 mL) insulin pen 15 unit subcut QPM Qty: 3 0RF Continued insulin lispro 100 unit/mL solution (DME) Dexcom G6 Sensor Device MISCELLANEOUS (DME) Dexcom G6 Transmitter Device MISCELLANEOUS <Maximo Kiser - Last Filed: 03/04/25 14:29> Date of admission: 03/03/25 05:31 <Maximo Kiser - Last Filed: 03/04/25 14:29> Primary Care Provider: Abdulaziz Ross <Maximo Kiser - Last Filed: 03/04/25 14:29> Admitting Provider: Abdirashid Sánchez <Homero Santiago, Student - Last Filed: 03/04/25 14:29> Attending physician on admission: Abdirashid Sánchez <Homero Santiago Student - Last Filed: 03/04/25 14:29> Condition: Stable <Homero Santiago Student - Last Filed: 03/04/25 14:29> Quality VTE Prophylaxis VTE prophylaxis: mechanical ordered <Rachel Capellan APRN - Last Filed: 03/04/25 14:37> Hospitalist MIPS Heart Failure (Exclusion) Patient has history of Heart Transplant or Left Ventricular Assistive Device?: No <Rachel Capellan APRN - Last Filed: 03/04/25 14:37> IF YES, STOP HERE: Heart Failure (Qualifier) Patient has current or prior documentation of LVEF less than or equal to 40%, or mod/servere depressed LVSF?: No <Rachel Capellan APRN - Last Filed: 03/04/25 14:37> IF NO, STOP HERE:
--- NOTE | 2025-03-07 12:55 | PCCDE ---
03/07/25 Courtesy follow up message left on Carl's phone Due to h/o autism; I also reached out to shannon Yeung dad for courtesy (# in chart) (Carl had given permission during admission) He voiced concern that Lantus was administered with insulin pump. I explained basal insulin administered due to pump being disconnected. He states things are going well, no questions. FJ
== END 2025-03-04 14:55 | disposition home or self-care (01) ==
LOC: ANHED 03-03 05:33 → ANHICU 03-03 06:21 → ANH3MEDSUR 03-03 14:39 → ANHICU 03-07 07:13
PROVIDERS: Internal Medicine; Nurse Practitioner; Admitting Provider Internal Medicine; Emergency Provider Emergency Medicine; PCP Emergency Medicine; Visit Provider General Practice
DX: E10.10 Type 1 diabetes mellitus with ketoacidosis without coma (principal); F10.10 Alcohol abuse, uncomplicated; F84.0 Autistic disorder; Z79.4 Long term (current) use of insulin; Z96.41 Presence of insulin pump (external) (internal)
CPT/HCPCS: 36415; 74176; 80048; 80053; 80307; 81001; 82010; 82077; 82948; 83036; 83735; 84100; 85025; 85027; 87641; 96361; 96374; 96375; 96376; 99285; A9270; G0378; G0379; J1815; J2270; J2405; J3480; J7030